=== PATIENT | male | born 1960 | race Hispanic/Latino ===

== ENCOUNTER 2020-07-16 18:43 | Observation (INO) | payer OTHER ==
[2020-07-16 19:55] LABS: Absolute Lymphocytes (CBC) 1.9 K/uL (0.7-4.9); Basophils % 0.8 % (0-1.3); Hematocrit 42.7 % (39.6-49.0); Lymphocytes % 27.7 % (15.3-44.8); MPV 9.1 fL (7.6-11.3); RBC Red Blood Cell Count 4.87 M/uL (4.33-5.43)
[2020-07-16 19:57] LABS: Protime INR 1.07
--- NOTE | 2020-07-16 20:00 | RAD REPORT ---
EXAM DESCRIPTION: RAD - Chest Single View - 07/16/2020 7:52 pm CLINICAL HISTORY: CHEST PAIN Chest pain. COMPARISON: No comparisons FINDINGS: Portable technique limits examination quality. The lungs are grossly clear. The heart is normal in size. No displaced fractures. IMPRESSION: No acute intrathoracic process suspected.
[2020-07-16] MEDS ORDERED: FAMOTIDINE 20 MG/2 ML VIAL IV ONE (20:01)
[2020-07-16] MEDS ORDERED: ONDANSETRON 4 MG/2 ML VIAL ONE (20:01)
[2020-07-16] MEDS ORDERED: MORPHINE 2 MG/ML SYR ONE (20:01)
[2020-07-16 20:14] LABS: ALT/SGPT 45 U/L (12-78); AST/SGOT 43 U/L (15-37); Albumin 4.4 g/dL (3.4-5.0); Alkaline Phosphatase 87 U/L (45-117); BUN Blood Urea Nitrogen 17 mg/dL (7-18); Bicarbonate 27 mmol/L (21-32); Bilirubin Direct 0.2 mg/dL (0-0.2); Bilirubin Total 0.5 mg/dL (0.2-1.0); Glucose Level 89 mg/dL (74-106); Lipase 104 U/L (73-393); NT PRO-BNP 6 pg/mL (<125); Potassium 4.3 mmol/L (3.5-5.1); Protein, Total 8.6 g/dL (6.4-8.2); Sodium Level 129 mmol/L (136-145); Troponin (Emerg Dept Use Only) < 0.02 ng/mL (0.0-0.045)
--- NOTE | 2020-07-16 20:55 | EDPHYS ---
Physician Documentation [facility] Name: Alejandro Elizabeth Age: 60 yrs Sex: Male : 1960 Arrival Date: 07/16/2020 Time: 18:52 Bed 26 Private MD: ED Physician Mike Shepherd HPI: 07/16 19:42 This 60 yrs old Male presents to ER via Wheelchair with complaints of Chest mh7 Pain. 19:42 The patient or guardian reports chest pain that is located primarily in the anterior mh7 chest wall, left. Onset: 3 day(s) ago. The pain does not radiate. Associated signs and symptoms: Pertinent positives: abdominal pain, nausea, Pertinent negatives: cough, diaphoresis, dizziness, headache, lower extremity pain, lower extremity swelling, lightheadedness, near syncope, palpitations, recent travel, shortness of breath, syncope, vomiting. The chest pain is described as a pressure. Duration: The patient or guardian reports multiple episodes, that are intermittent, that wax and wane, with no pattern. Modifying factors: The symptoms are alleviated by nothing. the symptoms are aggravated by nothing. Severity of pain: At its worst the pain was moderate 3 day(s) ago, in the emergency department the pain has improved moderately. Historical: - Allergies: 18:55 No Known Allergies; sv - PMHx: 18:55 Sleep Apnea; dehydration; low testosterone; sv - PSHx: 18:55 None; sv - Immunization history:: Adult Immunizations unknown. - Social history:: Smoking status: unknown. ROS: 19:42 Constitutional: Negative for fever, chills, and weight loss, Eyes: Negative for injury, mh7 pain, redness, and discharge, ENT: Negative for injury, pain, and discharge, Neck: Negative for injury, pain, and swelling, Respiratory: Negative for shortness of breath, cough, wheezing, and pleuritic chest pain, Back: Negative for injury and pain, : Negative for injury, bleeding, discharge, and swelling, MS/Extremity: Negative for injury and deformity, Skin: Negative for injury, rash, and discoloration, Neuro: Negative for headache, weakness, numbness, tingling, and seizure, Psych: Negative for depression, anxiety, suicide ideation, homicidal ideation, and hallucinations, Allergy/Immunology: Negative for hives, rash, and allergies, Endocrine: Negative for neck swelling, polydipsia, polyuria, polyphagia, and marked weight changes, Hematologic/Lymphatic: Negative for swollen nodes, abnormal bleeding, and unusual bruising. Exam: 19:42 Constitutional: This is a well developed, well nourished patient who is awake, alert, mh7 and in no acute distress. Head/Face: Normocephalic, atraumatic. Eyes: Pupils equal round and reactive to light, extra-ocular motions intact. Lids and lashes normal. Conjunctiva and sclera are non-icteric and not injected. Cornea within normal limits. Periorbital areas with no swelling, redness, or edema. Neck: Trachea midline, no thyromegaly or masses palpated, and no cervical lymphadenopathy. Supple, full range of motion without nuchal rigidity, or vertebral point tenderness. No Meningismus. Chest/axilla: Normal chest wall appearance and motion. Nontender with no deformity. No lesions are appreciated. Cardiovascular: Regular rate and rhythm with a normal S1 and S2. No gallops, murmurs, or rubs. Normal PMI, no JVD. No pulse deficits. Respiratory: Lungs have equal breath sounds bilaterally, clear to auscultation and percussion. No rales, rhonchi or wheezes noted. No increased work of breathing, no retractions or nasal flaring. 19:42 Back: No spinal tenderness. No costovertebral tenderness. Full range of motion. Skin: Warm, dry with normal turgor. Normal color with no rashes, no lesions, and no evidence of cellulitis. MS/ Extremity: Pulses equal, no cyanosis. Neurovascular intact. Full, normal range of motion. Neuro: Awake and alert, GCS 15, oriented to person, place, time, and situation. Cranial nerves II-XII grossly intact. Motor strength 5/5 in all extremities. Sensory grossly intact. Cerebellar exam normal. Normal gait. Psych: Awake, alert, with orientation to person, place and time. Behavior, mood, and affect are within normal limits. 19:42 Abdomen/GI: Inspection: abdomen appears normal, Bowel sounds: normal, in all quadrants, Palpation: mild abdominal tenderness, in the epigastric area, Rectal exam: the exam is deferred, because of patient request, Indicators: McBurney's point is not tender, Lal's sign is negative, Rovsing's sign is negative, Obturator sign is negative, Psoas sign is negative, Liver: no appreciated palpable abnormalities, Hernia: not appreciated. 21:19 ECG was reviewed by the Attending Physician. [facility] Vital Signs: 18:55 BP 154 / 79; Pulse 86; Resp 20; Temp 98.5(TE); Pulse Ox 100% on R/A; Weight 97.52 kg; sv Height 5 ft. 2 in. (157.48 cm); Pain 3/10; 20:00 BP 129 / 70; Pulse 73; Resp 17 S; Pulse Ox 98% on R/A; jd3 20:47 BP 137 / 74; Pulse 73; Resp 17 S; Pulse Ox 99% on R/A; jd3 21:49 BP 141 / 70; Pulse 65; Resp 16 S; Pulse Ox 99% on R/A; jd3 22:54 BP 149 / 88; Pulse 67; Resp 17 S; Pulse Ox 99% on R/A; jd3 18:55 Body Mass Index 39.32 (97.52 kg, 157.48 cm) sv MDM: 19:25 Patient medically screened. [facility] 20:51 Differential diagnosis: acute myocardial infarction, acute pericarditis, anxiety, 7 coronary artery disease chest wall pain, congestive heart failure esophagitis, gastritis, gastroesophageal reflux disease (GERD), pancreatitis, peptic ulcer disease, pericarditis, pneumonia, pneumothorax. HEART Score: History: Highly Suspicious (2), ECG: Normal (0), Age: > 45 and < 65 years (1), Risk Factors: 1 or 2 risk factors (1), [Hypercholesterolemia] Troponin: < or = 1 x Normal Limit (0), Total Score = 4. The patient was given aspirin in the Emergency Department. Data reviewed: vital signs, nurses notes, lab test result(s), amylase and lipase, cardiac enzymes, CBC, electrolytes, urinalysis, EKG, radiologic studies, plain films. Data interpreted: Pulse oximetry: on room air is 99 %. Interpretation: normal. Counseling: I had a detailed discussion with the patient and/or guardian regarding: the historical points, exam findings, and any diagnostic results supporting the discharge/admit diagnosis, lab results, radiology results, the need for further work-up and treatment in the hospital. 07/16 19:25 Order name: Basic Metabolic Panel; Complete Time: 20:29 07/16 19:25 Order name: CBC with Diff; Complete Time: 20:29 07/16 19:25 Order name: LFT's; Complete Time: 20:29 07/16 19:25 Order name: Magnesium; Complete Time: 20:29 07/16 19:25 Order name: NT PRO-BNP; Complete Time: 20:29 07/16 19:25 Order name: PT-INR; Complete Time: 20:29 07/16 19:17 Order name: EKG; Complete Time: 19:18 07/16 19:25 Order name: Troponin (emerg Dept Use Only); Complete Time: 20:29 07/16 19:25 Order name: XRAY Chest (1 view); Complete Time: 20:29 07/16 19:25 Order name: Lipase; Complete Time: 20:29 07/16 19:17 Order name: EKG - Nurse/Tech; Complete Time: 19:17 [facility] 07/16 19:25 Order name: Cardiac monitoring; Complete Time: 19:34 07/16 19:25 Order name: IV Saline Lock; Complete Time: 19:47 07/16 19:25 Order name: Labs collected and sent; Complete Time: 19:47 07/16 19:25 Order name: O2 Per Protocol; Complete Time: 19:34 07/16 19:25 Order name: O2 Sat Monitoring; Complete Time: 19:34 mh7 EC:19 Rate is 61 beats/min. Rhythm is regular, Normal Sinus Rhythm. QRS [place] is Normal. CT mh7 interval is normal. QRS interval is normal. QT interval is normal. No Q waves. T waves are Normal. No ST changes noted. Clinical impression: Normal ECG. Administered Medications: 19:55 Drug: Pepcid 20 mg Route: IVP; Site: left antecubital; jd3 20:50 Follow up: Response: No adverse reaction jd3 19:55 Not Given (Patient Refused): morphine 2 mg IVP once; RASS on ADMIN: Combtv4, Very jd3 Agttd3, Agttd2, Rstlss1, AlertClm0, Drwsy-1, Lt Sdtn-2, Mod Sdtn-3, Dp Sdtn-4, UnArsble-5 19:56 Drug: Zofran (Ondansetron) 4 mg Route: IVP; Site: left antecubital; jd3 20:50 Follow up: Response: No adverse reaction jd3 20:46 Drug: Aspirin Chewable Tablet 324 mg Route: PO; jd3 21:45 Follow up: Response: No adverse reaction jd3 Disposition: 07/16/20 20:54 Hospitalization ordered by Lucas Gonzalez for Observation. Preliminary diagnosis is Chest pain, unspecified. - Bed requested for Telemetry/MedSurg (observation). - Status is Observation. jd3 - Condition is Stable. - Problem is new. - Symptoms have improved. Signatures: Dispatcher [employer] EDMS Yanet Taylor RN Nena Sanders RN RN Shashank Alberto RN RN jMike Rodriguez MD MD mh7 Corrections: (The following items were deleted from the chart) 22:34 20:54 Hospitalization Ordered by Lucas Gonzalez MD for Observation. Preliminary cg diagnosis is Chest pain, unspecified. Bed requested for Telemetry/MedSurg (observation). Status is Observation. Condition is Stable. Problem is new. Symptoms have improved. mh7 23:00 22:34 07/16/2020 20:54 Hospitalization Ordered by Lucas Gonzalez MD for Observation. jd3 Preliminary diagnosis is Chest pain, unspecified. Bed requested for Telemetry/MedSurg (observation). Status is Observation. Condition is Stable. Problem is new. Symptoms have improved. cg
--- NOTE | 2020-07-16 20:55 | ER ---
Nurse's Notes [facility] Name: Alejandro Elizabeth Age: 60 yrs Sex: Male : 1960 Arrival Date: 07/16/2020 Time: 18:52 Bed 26 [facility] MD: Diagnosis: Chest pain, unspecified Presentation: 07/16 18:53 Chief complaint: Patient states: left sided chest pain that radiates to the epigastric sv area, nausea and chills x 3 days. Denies SOB and dizziness. Coronavirus screen: Client denies travel out of the [place] in the last 14 days. At this time, the client does not indicate any symptoms associated with coronavirus-19. Ebola Screen: No symptoms or risks identified at this time. Risk Assessment: Do you want to hurt yourself or someone else? Patient reports no desire to harm self or others. Onset of symptoms was July 13, 2020. 18:53 Method Of Arrival: Wheelchair sv 18:53 Acuity: JARED 3 sv 18:55 Initial Sepsis Screen: Does the patient meet any 2 criteria? No. Patient's initial sv sepsis screen is negative. Does the patient have a suspected source of infection? No. Patient's initial sepsis screen is negative. Historical: - Allergies: 18:55 No Known Allergies; sv - PMHx: 18:55 Sleep Apnea; dehydration; low testosterone; sv - PSHx: 18:55 None; sv - Immunization history:: Adult Immunizations unknown. - Social history:: Smoking status: unknown. Screenin:58 Abuse screen: Denies threats or abuse. Nutritional screening: No deficits noted. jd3 Tuberculosis screening: No symptoms or risk factors identified. Fall Risk Ambulatory Aid- None/Bed Rest/Nurse Assist (0 pts). Gait- Normal/Bed Rest/Wheelchair (0 pts) Mental Status- Oriented to own ability (0 pts). Total Barrera Fall Scale indicates No Risk (0-24 pts). Assessment: 19:57 General: Appears in no apparent distress. uncomfortable, Behavior is calm, cooperative, jd3 appropriate for age. Pain: Complains of pain in chest Pain does not radiate. Pain currently is 2 out of 10 on a pain scale. Quality of pain is described as aching, pressure, Pain began 2-3 days ago. Neuro: Level of Consciousness is awake, alert, obeys commands, Oriented to person, place, time, situation. Cardiovascular: Reports chest pain, Capillary refill < 3 seconds Patient's skin is warm and dry. Rhythm is regular. Respiratory: Airway is patent Respiratory effort is even, unlabored, Respiratory pattern is regular, symmetrical, Denies cough, shortness of breath. GI: Reports constipation, indigestion. : No signs and/or symptoms were reported regarding the genitourinary system. EENT: No signs and/or symptoms were reported regarding the EENT system. Derm: Skin is intact, Skin is dry, Skin is normal, Skin temperature is warm. 20:46 Reassessment: Patient appears in no apparent distress at this time. No changes from [facility] previously documented assessment. Patient and/or family updated on plan of care and expected duration. Pain level reassessed. Patient is alert, oriented x 3, equal unlabored respirations, skin warm/dry/pink. 21:49 Reassessment: Patient appears in no apparent distress at this time. Patient and/or jd3 family updated on plan of care and expected duration. Pain level reassessed. Patient is alert, oriented x 3, equal unlabored respirations, skin warm/dry/pink. awaiting admission. 22:58 Reassessment: Patient appears in no apparent distress at this time. Patient and/or jd3 family updated on plan of care and expected duration. Pain level reassessed. Patient is alert, oriented x 3, equal unlabored respirations, skin warm/dry/pink. Vital Signs: 18:55 BP 154 / 79; Pulse 86; Resp 20; Temp 98.5(TE); Pulse Ox 100% on R/A; Weight 97.52 kg; sv Height 5 ft. 2 in. (157.48 cm); Pain 3/10; 20:00 BP 129 / 70; Pulse 73; Resp 17 S; Pulse Ox 98% on R/A; jd3 20:47 BP 137 / 74; Pulse 73; Resp 17 S; Pulse Ox 99% on R/A; jd3 21:49 BP 141 / 70; Pulse 65; Resp 16 S; Pulse Ox 99% on R/A; jd3 22:54 BP 149 / 88; Pulse 67; Resp 17 S; Pulse Ox 99% on R/A; jd3 18:55 Body Mass Index 39.32 (97.52 kg, 157.48 cm) ED Course: 18:52 Patient arrived in ED. mr 18:54 Triage completed. sv 18:55 Arm band placed on. sv 19:02 Mike Shepherd MD is Attending Physician. 7 19:17 Shashank Vidales, JOHNNIE is Primary Nurse. jd3 19:53 XRAY Chest (1 view) In Process Unspecified. EDMS 19:58 Patient has correct armband on for positive identification. Placed in gown. Bed in low jd3 position. Call light in reach. Side rails up X 1. cardiac monitor on. Pulse ox on. NIBP on. 19:59 Inserted saline lock: 20 gauge in left antecubital area, using aseptic technique. Blood jd3 collected. placed by [facility]. Patient maintains SpO2 saturation greater than 95% on room air. 20:54 Lucas Gonzalez MD is Hospitalizing Provider. 7 22:55 No provider procedures requiring assistance completed. Patient admitted, IV remains in jd3 place. Administered Medications: 19:55 Drug: Pepcid 20 mg Route: IVP; Site: left antecubital; jd3 20:50 Follow up: Response: No adverse reaction jd3 19:55 Not Given (Patient Refused): morphine 2 mg IVP once; RASS on ADMIN: Combtv4, Very jd3 Agttd3, Agttd2, Rstlss1, AlertClm0, Drwsy-1, Lt Sdtn-2, Mod Sdtn-3, Dp Sdtn-4, UnArsble-5 19:56 Drug: Zofran (Ondansetron) 4 mg Route: IVP; Site: left antecubital; jd3 20:50 Follow up: Response: No adverse reaction jd3 20:46 Drug: Aspirin Chewable Tablet 324 mg Route: PO; jd3 21:45 Follow up: Response: No adverse reaction jd3 Outcome: 20:54 Decision to Hospitalize by Provider. 7 22:55 Admitted to Med/surg accompanied by tech, via wheelchair, room 431, with chart, Report jd3 called to Sailaja BLAIR 22:55 Condition: stable 22:55 Instructed on the need for admit, Demonstrated understanding of instructions. 23:00 Patient left the ED. jd3 Signatures: Dispatcher [employer] EDYanet Morin, JOHNNIE [place] Ashtyn mr VidalesShashank RN RN jd3 Holmes, Maurice, MD MD mh7 Corrections: (The following items were deleted from the chart) 18:58 18:55 Pulse 86bpm; Resp 20bpm; Pulse Ox 100%; Temp 98.5F; 97.52 kg; Height 5 ft. 2 in.; sv BMI: 39.3; Pain 3/10; sv
[2020-07-16] MEDS ORDERED: ASPIRIN 81 MG CHEWABLE TABLET ONE (20:56)
--- NOTE | 2020-07-16 21:41 | P.HP ---
Certification for Inpatient Patient admitted to: Observation With expected LOS: <2 Midnights Patient will require the following post-hospital care: None Practitioner: I am a practitioner with admitting privileges, knowledge of patient current condition, hospital course, and medical plan of care. Services: Services provided to patient in accordance with Admission requirements found in Title 42 Section 412.3 of the Code of Federal Regulations <Moustapha Lubin - Last Filed: 07/16/20 21:34> Patient History Date of Service: 07/16/20 Primary Care Provider: Dr. Werner Reason for admission: Chest pain History of Present Illness: 60-year-old male with history of diabetes insipidus, hyperlipidemia, GERD presents emergency department for chest pain and epigastric pain. Patient reports he has had chest pain on and off over the course of the last 2-3 days. Pain is described as pressure-like and nonradiating, relieved by nothing, exacerbated by nothing. Patient reports last cardiac workup was approximately 5 years ago when he had normal stress test. The troponin, EKG, chest x-ray emergency department unremarkable. ED provider wishes to admit patient for further evaluation and management. When I saw the patient in the emergency department he was awake, alert, or x4. Patient with very mild pain at this time. CBC within normal limits, no abdominal tenderness noted, lipase within normal limits. Patient be admitted for further evaluation and management. 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 - Family History Mother -: Heart disease, Diabetes - Social History Smoking Status: Never smoker Alcohol use: No CD- Drugs: No Caffeine use: Yes Place of Residence: Home <Moustapha Lubin - Last Filed: 07/16/20 21:34> Date of Service: 07/17/20 <Lucas Gonzalez - Last Filed: 07/17/20 16:03> Review of Systems Cardiovascular: Chest Pain Gastrointestinal: Other (Epigastric pain) <TristianMoustapha - Last Filed: 07/16/20 21:34> Physical Examination - Physical Exam General: Alert, In no apparent distress HEENT: Atraumatic, PERRLA, Mucous membr. moist/pink Neck: Supple, 2+ carotid pulse no bruit, No LAD Respiratory: Clear to auscultation bilaterally, Normal air movement Cardiovascular: Regular rate/rhythm, Normal S1 S2 Capillary refill: <2 Seconds Gastrointestinal: Normal bowel sounds, No tenderness Musculoskeletal: No contractures, No tenderness Integumentary: No rashes Neurological: Normal speech, Normal strength at 5/5 x4 extr, Normal tone, Normal affect - Studies Laboratory Data (last 24 hrs) 07/16/20 19:47: PT 12.6 H, INR 1.07 07/16/20 19:47: WBC 6.8, Hgb 15.4, Hct 42.7, Plt Count 270 07/16/20 19:47: Sodium 129 L, Potassium 4.3, BUN 17, Creatinine 0.88, Glucose 89, Magnesium 2.0, Total Bilirubin 0.5, AST 43 H, ALT 45, Alkaline Phosphatase 87, Lipase 104 <Moustapha Lubin - Last Filed: 07/16/20 21:34> - Studies Laboratory Data (last 24 hrs) 07/16/20 19:47: PT 12.6 H, INR 1.07 07/16/20 19:47: WBC 6.8, Hgb 15.4, Hct 42.7, Plt Count 270 07/16/20 19:47: Sodium 129 L, Potassium 4.3, BUN 17, Creatinine 0.88, Glucose 89, Magnesium 2.0, Total Bilirubin 0.5, AST 43 H, ALT 45, Alkaline Phosphatase 87, Lipase 104 <Lucas Gonzalez - Last Filed: 07/17/20 16:03> Assessment and Plan - Plan Assessment Chest pain rule out ACS Mild hypernatremia likely secondary to Diabetes insipidus Hypothyroidism Hyperlipidemia GERD Sleep apnea Plan Chest pain rule out ACS: Will trend troponins, continue aspirin, statin, beta- analy therapy. Patient remain on telemetry the this hospitalization, cardiology consult in place. Patient NPO after midnight. Echocardiogram ordered, DVT prophylaxis Lovenox 40 mg subcutaneous once daily. Mild hyponatremia likely secondary to Diabetes insipidus: Patient takes desmopressin acetate 0.2 mg 1 tablet twice daily, important this is not available. Will have patient provide this for home. Patient's sodium is 129, will continue with normal saline IV fluids at this time. Recheck chemistry with morning labs. Hypothyroidism: Have continue patient's levothyroxine, will check thyroid panel with morning labs. Hyperlipidemia: Have continue patient's statin, fibrate. Increase statin to atorvastatin 40 mg from 20 mg. GERD: Have continue patient's home medication Protonix. Sleep apnea: Patient reports his CPAP machine at home as the broken the past few days, has not been sleeping well. Will provide patient with CPAP for at night use. Discharge Plan: Home Plan to discharge in: 24 Hours - Advance Directives Does patient have a Living Will: No Does patient have a Durable POA for Healthcare: No - Code Status/Comfort Care Code Status Assessed: Yes (Patient is full code) Critical Care: No Time Spent Managing Pts Care (In Minutes): 55 <Moustapha Lubin - Last Filed: 07/16/20 21:34> Physician Review Additional Text: Plan of care discussed with Moustapha Lubin, and I agree with the management plan as noted above. <Lucas Gonzalez - Last Filed: 07/17/20 16:03>
[2020-07-16 23:12] VITALS: BMI 38.7
[2020-07-16] MEDS ORDERED: ACETAMINOPHEN 500 MG TAB PO PRN (23:16)
[2020-07-16] MEDS ORDERED: ONDANSETRON 4 MG/2 ML VIAL IV PRN (23:16)
[2020-07-17 04:16] LABS: Absolute Lymphocytes (CBC) 2.5 K/uL (0.7-4.9); Hematocrit 40.6 % (39.6-49.0); Lymphocytes % 32.7 % (15.3-44.8); MPV 9.4 fL (7.6-11.3); RBC Red Blood Cell Count 4.57 M/uL (4.33-5.43)
[2020-07-17 04:44] LABS: BUN Blood Urea Nitrogen 19 mg/dL (7-18); Bicarbonate 28 mmol/L (21-32); Glucose Level 88 mg/dL (74-106); HDL Cholesterol 43 mg/dL (40-60); LDL Cholesterol, Calculated 120 (<130); Magnesium 2.1 mg/dL (1.8-2.4); Potassium 4.1 mmol/L (3.5-5.1); Sodium Level 131 mmol/L (136-145); Thyroid Stimulating Hormone 0.174 uIU/mL (0.360-3.740); Troponin I < 0.02 ng/mL (0.0-0.045)
[2020-07-17] MEDS ORDERED: METOPROLOL TAR 25 MG TAB PO SCH (06:00)
[2020-07-17] MEDS ORDERED: PANTOPRAZOLE 40MG TABLET PO SCH (06:30)
[2020-07-17] MEDS ORDERED: LEVOTHYROXINE SOD 0.088 MG TAB PO SCH (06:30)
[2020-07-17] MEDS ORDERED: gemfibroziL 600 MG TAB PO SCH (07:30)
[2020-07-17] MEDS ORDERED: ENOXAPARIN 40 MG/0.4 ML SQ SCH (09:00)
[2020-07-17] MEDS ORDERED: ASPIRIN EC 81 MG TAB PO SCH (09:00)
--- NOTE | 2020-07-17 14:54 | P.DS ---
Admission Date: 07/16/20 Discharge Date: 07/17/20 Primary Care Provider: Dr. Werner Disposition: ROUTINE DISCHARGE Discharge Condition: GOOD Reason for Admission: Chest pain Consultations: Cardiology - Dr. Gerardo Procedures: CXR: 07/16/2020): No acute intrathoracic process suspected. The lungs are grossly clear. The heart is normal in size. No displaced fractures Problem List: Chest pain rule out ACS Mild hypernatremia likely secondary to Diabetes insipidus Hypothyroidism Hyperlipidemia GERD Sleep apnea Brief History of Present Illness: 60-year-old male with history of diabetes insipidus, hyperlipidemia, GERD presents emergency department for chest pain and epigastric pain. Patient reports he has had chest pain on and off over the course of the last 2-3 days. Pain is described as pressure-like and nonradiating, relieved by nothing, exacerbated by nothing. Patient reports last cardiac workup was approximately 5 years ago when he had normal stress test. The troponin, EKG, chest x-ray emergency department unremarkable. ED provider wishes to admit patient for further evaluation and management. Hospital Course: Patient was admitted for further evaluation. His troponins were trended and remained negative. Most of his chest pain had resolved, no slight pain that remained was aggravated/worsened when he would flex his chest and move around his left arm. His risks were discussed, and given that we do not have echocardiogram and stress test available on the weekend, patient will be discharged home to follow up on this following week for outpatient testing. In addition to some statin, his discharge on aspirin 81 mg, and metoprolol. Vital Signs/Physical Exam: Temp Pulse Resp BP Pulse Ox 97.8 F 69 18 129/62 96 07/17/20 12:00 07/17/20 12:00 07/17/20 12:00 07/17/20 12:07/17/20 12:00 General: Alert, In no apparent distress HEENT: Mucous membr. moist/pink, Sclerae nonicteric Neck: No LAD Respiratory: Clear to auscultation bilaterally, Normal air movement Cardiovascular: No edema, Regular rate/rhythm, Normal S1 S2, Other (Chest wall nontender) Gastrointestinal: Soft and benign, Non-distended, No tenderness Musculoskeletal: No erythema, No tenderness Integumentary: No rashes Neurological: Normal speech, Normal affect Laboratory Data at Discharge: WBC 7.7 K/uL (4.3-10.9) 07/17/20 03:53 Hgb 14.4 g/dL (13.6-17.9) 07/17/20 03:53 Hct 40.6 % (39.6-49.0) 07/17/20 03:53 Plt Count 287 K/uL (152-406) 07/17/20 03:53 PT 12.6 SECONDS (9.5-12.5) H 07/16/20 19:47 INR 1.07 07/16/20 19:47 Sodium 131 mmol/L (136-145) L 07/17/20 03:53 Potassium 4.1 mmol/L (3.5-5.1) 07/17/20 03:53 BUN 19 mg/dL (7-18) H 07/17/20 03:53 Creatinine 0.95 mg/dL (0.55-1.3) 07/17/20 03:53 Glucose 88 mg/dL (74-106) 07/17/20 03:53 Magnesium 2.1 mg/dL (1.8-2.4) 07/17/20 03:53 Total Bilirubin 0.5 mg/dL (0.2-1.0) 07/16/20 19:47 AST 43 U/L (15-37) H 07/16/20 19:47 ALT 45 U/L (12-78) 07/16/20 19:47 Alkaline Phosphatase 87 U/L (45-117) 07/16/20 19:47 Troponin I < 0.02 ng/mL (0.0-0.045) 07/17/20 03:53 Triglycerides 138 mg/dL (<150) 07/17/20 03:53 Cholesterol 191 mg/dL (<200) 07/17/20 03:53 HDL Cholesterol 43 mg/dL (40-60) 07/17/20 03:53 Cholesterol/HDL Ratio 4.44 07/17/20 03:53 Lipase 104 U/L (73-393) 07/16/20 19:47 Home Medications: Atorvastatin Calcium 1 tab PO BEDTIME 07/16/20 Desmopressin Acetate 1 tab PO BID 07/16/20 Diclofenac Sodium 1 tab PO BID 07/16/20 Ergocalciferol (Vitamin D2) [Vitamin D2] 1 cap PO SEECOM 07/16/20 Levothyroxine [Synthroid*] 1 tab PO DAILY 07/16/20 Meclizine HCl [Travel-Ease] 1 tab PO TID PRN 07/16/20 Multivit-Mins/Iron/Folic/Lycop [Centrum Men's Tablet] 1 tab PO DAILY 07/16/20 Ondansetron [Ondansetron Odt] 1 tab PO TID PRN 07/16/20 Pantoprazole Sodium 1 tab PO DAILY 07/16/20 Testosterone Cypionate [Testone Cik] 1 ml IM SEECOM 07/16/20 calcium polycarbophiL [Fibercon*] 1 tab PO BID 07/16/20 gemfibroziL [Gemfibrozil] 1 tab PO BID 07/16/20 Aspirin [Aspirin EC 81 MG] 1 tab PO DAILY 30 Days #30 tablet. 07/17/20 Metoprolol Tartrate [Lopressor*] 1 tab PO BID 30 Days #30 tab 07/17/20 New Medications: Aspirin [Aspirin EC 81 MG] 1 tab PO DAILY 30 Days #30 tablet. Metoprolol Tartrate [Lopressor*] 1 tab PO BID 30 Days #30 tab Patient Discharge Instructions: Follow up with PCP within 1 week. Follow up with Cardiology (Dr. Gerardo) in the next week for possible outpatient stress test. Diet: AHA Activity: Ad giacomo Time spent managing pt's care (in minutes): 35
[2020-07-17 16:27] VITALS: BP 113/55; TEMP 97.9; O2SAT 97
[2020-07-17] MEDS ORDERED: HOME MED 1 EA UNK PO SCH (21:00)
[2020-07-17] MEDS ORDERED: ATORVASTATIN 40 MG TAB PO SCH (21:00)
[2020-07-18] MEDS ORDERED: HOME MED 1 EA UNK PO SCH (09:00)
--- NOTE | 2020-07-29 22:17 | CON ---
Date of Consultation: 07/16/2020 Reason For Consultation: Chest pain. History Of Present Illness: This is a 60-year-old male with history of diabetes insipidus, hypothyro idism, hyperlipidemia, acid reflux, and sleep apnea, presented to the emergency room with chest pain. Pain is left-sided, not related to exertion. No exacerbating or relieving factors. The patient martino d a normal stress test about 5 years ago. Does not have any nausea, vomiting, or diaphoresis with it . No other complaints. Past Medical History: As outlined above in the HPI. Medications: Refer to reconciliation sheet for detailed list. Allergies: NO KNOWN DRUG ALLERGIES. Family History: No premature coronary artery disease or cancer. Social History: Does not smoke or drink or use any drugs. Review of Systems: All systems reviewed and they were negative except what mentioned in the HPI. Physical Examination: Vital Signs: Reviewed. Head and Neck: Pupils are reactive to light. Intact eye movements. No JVD. No cervical lymphadeno ani. Neck is supple. Thyroid is not enlarged. Lungs: Clear to auscultation bilaterally. No rhonchi, rales, crackles. No accessory muscle use. Heart: Regular rate and rhythm. No extra sounds. Abdomen: Soft, nontender. Bowel sounds positive. No organomegaly. No masses or hernia. No rigidi ty or rebound. Extremities: No edema, clubbing, cyanosis. Intact pulses. Skin: No rash. Neurologic: Alert, awake, oriented x3. No acute focal deficit appreciated. Lymph Nodes: No cervical or axillary lymphadenopathy. Investigations: Sodium 131, troponin x2 is negative, and creatinine 0.93. White blood count 7.7, he moglobin 14.4. EKG without acute specific abnormalities. Assessment And Plan: Chest pain with risk factors; however, atypical pain. Myocardial infarction wa s ruled out. At this point from cardiac standpoint, the patient can be released and followup as outp atient with echo and exercise nuclear stress test and further plan according to that. Recommend to s end the patient on low-dose aspirin 81 mg and sublingual nitroglycerin as needed and to report any fu rther episodes of chest pain. Thank you for this consultation. /AKHIL Voice ID: [id number] Report ID: [id number]
== END 2020-07-17 16:20 | disposition home or self-care (01) ==
LOC: ER 18:43 → ERHOLD 21:11 → 4TH 22:46
PROVIDERS: ADMIT Hospitalist; ATTEND Hospitalist
DX: R07.89 Other chest pain (principal); K21.9 Gastro-esophageal reflux disease without esophagitis; E87.0 Hyperosmolality and hypernatremia; E03.9 Hypothyroidism, unspecified; E78.5 Hyperlipidemia, unspecified; G47.30 Sleep apnea, unspecified; E23.2 Diabetes insipidus; Z20.828 Contact with and (suspected) exposure to other viral communicable diseases; Z82.49 Family history of ischemic heart disease and other diseases of the circulatory system; Z83.3 Family history of diabetes mellitus
CPT/HCPCS: 93005; 85025 ×2; 80048 ×2; 36415; 83735 ×2; 85610; 80061; 80076; 84443; 84484 ×3; 84439; 83690; 83880; 71045; 94660; 96375; 96374; 99285; U0002; J1650; J2270; J2405; G0378 ×2

== ENCOUNTER 2022-01-21 16:18 | Emergency (ER) | payer OTHER ==
--- OUTSIDE RECORDS SUMMARY | 2022-01-21 16:21 | XMS REPORT | Continuity of Care Document ---
:1960 Author Organization [facility] t Address [address] [place] [address] [address] [place] [address] Care Team Providers Name Role Phone DR MAGAN DHALIWAL Attending Clinician Unavailable DR Dinesh DHALIWAL Admitting Clinician Unavailable Payers Payer Name Policy Type Policy Number Effective Date Expiration Date S romulo 0345 [id number] 1959 00:00:00 0450 [id number] Problems This patient has no known problems. Allergies, Adverse Reactions, Alerts This patient has no known allergies or adverse reactions. Medications This patient has no known medications. Procedures This patient has no known procedures. Encounters Start End Encounter Admission Attending Care Care Encounter Source Date/Time Date/Time Type Type Clinicians Facility Department ID 2022-01-10 2022-01-10 [facility] [id number] [place] 17:03:00 23:59:00 [facility] 2014-05-22 2014-05-22 Outpatient Hank DHALIWAL [facility] RAD [id number] [place] 11:01:00 23:59:00 [facility] Results Test Description Test Time Test Comments Results Result [facility] dinesh Comments CT ANGIO CHEST W 2022-01-10 AND WO 18[facility]42:11 [facility] 1960 Sex: M LO CATION: [id number]: 61-year-old male who presents with dyspnea.COMMENT:Axial CT imaging of this patient's chest was obtained from the thoracic inlet to the upper abdomen with IV contrast utilizing pulmonary embolism protocol. Soft tissue and lung window images were submitted in the axial plane. Coronal and sagittal MPR, and coronal MIP reconstructions were included.One or more of the following dose reduction techniques were used: Automated exposure control, adjustment of the mA and/or kV according the patient size, and/or utilization of iterative reconstruction technique.DLP: 712 mGy-cmCONTRAST: 97 mL of Isovue-370 nonionic contrast was injected into the right antecubital vein. The serum creatinine level was 1.06 and the estimated GFR was greater than 60 mL/m.FINDINGS:There are no suspicious filling defects demonstrated in the pulmonary arteries.The thoracic aorta and great vessels are unremarkable. The cardiac silhouette is at the upper limits of normal. The pulmonary venous return is unremarkable.Bulky mediastinal and hilar adenopathy is demonstrated. The involve lymph node groups include the right paratracheal group left prevascular group, AP window, both right and left hilar groups as well as the subcarinal group's.In addition there is no lymphadenopathy seen in the visualized upper abdomen involving the retroperitoneal anatomy.Bilateral pleural effusions are present. The right effusion is moderate volume of the left pleural effusion is trace in volume.There is a nodule demonstrated in the patient's right upper lobe (image 43, series 9) measuring approximately 14 mm in diameter. The nodule is not calcified. Otherwise, there is chronic appearing parenchymal scarring seen in the right lung primarily with bronchiectasis demonstrated in the right upper lobe region. The left lung is grossly clear.The upper abdomen the liver, spleen, pancreas, adrenal glands, visualized kidneys, and gallbladder are unremarkable.IMPRESSI ON:There is no evidence for pulmonary embolism in this CT study of the chest areExtensive bulky lymphadenopathy is demonstrated in the chest as outlined above. There is additional adenopathy demonstrated in the retroperitoneal region of the visualized upper abdomen.Bilateral pleural effusions are demonstrated, right greater than left as outlined above.A single nodular density is seen in the right upper lobe as outlined above. Otherwise, chronic appearing parenchymal scarring is seen in the right lung primarily, without evidence of parenchymal scarring in the left lung.Electronically signed by: Chaim Zeng MD 01/10/2022 6:42 PM CDT
--- NOTE | 2022-01-21 16:38 | ER ---
Nurse's Notes [facility] Name: Alejandro Elizabeth Age: 61 yrs Sex: Male : 1960 Arrival Date: 01/21/2022 Time: 16:20 Bed 10 Private MD: Diagnosis: Sciatica, left side Presentation: 01/21 16:31 Chief complaint: Patient states: "I have low back pain that goes down my left leg, I ab2 think its sciatica.". Coronavirus screen: Vaccine status: Patient reports receiving the 2nd dose of the covid vaccine. Client denies travel out of the [place] in the last 14 days. At this time, the client does not indicate any symptoms associated with coronavirus-19. Ebola Screen: Patient negative for fever greater than or equal to 101.5 degrees Fahrenheit, and additional compatible Ebola Virus Disease symptoms Patient denies exposure to infectious person. Patient denies travel to an Ebola-affected area in the 21 days before illness onset. No symptoms or risks identified at this time. Initial Sepsis Screen: Does the patient meet any 2 criteria? No. Patient's initial sepsis screen is negative. Does the patient have a suspected source of infection? No. Patient's initial sepsis screen is negative. Risk Assessment: Do you want to hurt yourself or someone else? Patient reports no desire to harm self or others. Onset of symptoms is unknown. 16:31 Method Of Arrival: Ambulatory ab2 16:31 Acuity: JARED 4 ab2 Triage Assessment: 16:34 General: Appears in no apparent distress. uncomfortable, Behavior is calm, cooperative, ab2 appropriate for age. Pain: Complains of pain in left low back Pain radiates to left leg. Historical: - Allergies: 16:34 No Known Allergies; ab2 - PMHx: 16:34 low testosterone; dehydration; Sleep Apnea; ab2 - Immunization history:: Adult Immunizations up to date. - Social history:: Smoking status: Patient denies any tobacco usage or history of. Screenin:53 Abuse screen: Denies threats or abuse. Denies injuries from another. Nutritional iw screening: No deficits noted. Tuberculosis screening: No symptoms or risk factors identified. Fall Risk None identified. Assessment: 16:53 Reassessment: Patient appears in no apparent distress at this time. Patient and/or iw family updated on plan of care and expected duration. Pain level reassessed. Patient is alert, oriented x 3, equal unlabored respirations, skin warm/dry/pink. Vital Signs: 16:31 BP 163 / 78; Pulse 85; Resp 26; Temp 97.8(TE); Pulse Ox 94% on R/A; Weight 99.79 kg; ab2 Height 5 ft. 2 in. (157.48 cm); Pain 9/10; 16:31 Body Mass Index 40.24 (99.79 kg, 157.48 cm) ab2 ED Course: 16:20 Patient arrived in ED. rg4 16:33 Yue Copeland [facility]-C [facility]. kb 16:33 Jeremias Khanna MD is Attending Physician. kb 16:33 Triage completed. ab2 16:34 Arm band placed on left wrist. ab2 16:44 Marcia Patel, RN is Primary Nurse. iw 16:45 Patient has correct armband on for positive identification. iw 16:53 No provider procedures requiring assistance completed. Patient did not have IV access iw during this emergency room visit. Administered Medications: 16:44 Drug: [place] (HYDROcodone-acetaminophen) 10 mg-325 mg 1 tabs Route: PO; iw 17:00 Follow up: Response: No adverse reaction iw Outcome: 16:38 Discharge ordered by . kb 16:53 Discharged to home ambulatory. iw 16:53 Condition: good 16:53 Discharge instructions given to patient, Instructed on discharge instructions, follow up and referral plans. Demonstrated understanding of instructions, follow-up care, medications, Prescriptions given X 2. 16:53 Patient left the ED. iw Signatures: Yue Copeland FNP-C FNP-Ckb Williams, Irene, RN Narcisa Monroy rg4 Riley Velasquez ab2
--- NOTE | 2022-01-21 16:38 | EDPHYS ---
Physician Documentation [facility] Name: Alejandro Elziabeth Age: 61 yrs Sex: Male : 1960 Arrival Date: 01/21/2022 Time: 16:20 Bed 10 Private MD: YUNIER Physician Jeremias Khanna HPI: 01/21 16:35 This 61 yrs old Male presents to ER via Ambulatory with complaints of Low Back kb Pain, Leg Pain. 16:35 The patient presents with pain that is acute. The symptoms are located in the left low kb back. The pain radiates to the left leg. The problem was sustained from unknown cause. Onset: The symptoms/episode began/occurred today. Modifying factors: The patient symptoms are alleviated by nothing, the patient symptoms are aggravated by any movement. Associated signs and symptoms: The patient has no apparent associated signs or symptoms. Severity of symptoms: At their worst the symptoms were moderate, in the emergency department the symptoms are unchanged. The patient has experienced a previous episode. The patient has not recently seen a physician. Pt reports left upper buttock/low back pain that radiates down left leg. States he has had some pain across low back over the last week. . Historical: - Allergies: 16:34 No Known Allergies; ab2 - PMHx: 16:34 low testosterone; dehydration; Sleep Apnea; ab2 - Immunization history:: Adult Immunizations up to date. - Social history:: Smoking status: Patient denies any tobacco usage or history of. ROS: 16:34 Constitutional: Negative for fever, chills, and weight loss. kb 16:34 Back: Positive for pain at rest, pain with movement, radiated pain, of the left low back. 16:34 All other systems are negative. Exam: 16:34 Constitutional: This is a well developed, well nourished patient who is awake, alert, kb and in no acute distress. Head/Face: Normocephalic, atraumatic. ENT: Moist Mucous membranes Skin: Warm, dry with normal turgor. Normal color. MS/ Extremity: Pulses equal, no cyanosis. Neurovascular intact. Full, normal range of motion. Neuro: Awake and alert, GCS 15, oriented to person, place, time, and situation. Moves all extremities. Normal gait. Psych: Awake, alert, with orientation to person, place and time. Behavior, mood, and affect are within normal limits. 16:34 Respiratory: the patient does not display signs of respiratory distress, Respirations: no acute changes, labored breathing, that is mild. 16:34 Back: pain, that is moderate, of the left low back. Vital Signs: 16:31 BP 163 / 78; Pulse 85; Resp 26; Temp 97.8(TE); Pulse Ox 94% on R/A; Weight 99.79 kg; ab2 Height 5 ft. 2 in. (157.48 cm); Pain 9/10; 16:31 Body Mass Index 40.24 (99.79 kg, 157.48 cm) ab2 MDM: 16:33 Data reviewed: vital signs, nurses notes. Data interpreted: Pulse oximetry: on room air kb is 93 %. Interpretation: acceptable. Counseling: I had a detailed discussion with the patient and/or guardian regarding: the historical points, exam findings, and any diagnostic results supporting the discharge/admit diagnosis, the need for outpatient follow up, a family practitioner, to return to the emergency department if symptoms worsen or persist or if there are any questions or concerns that arise at home. 16:36 ED course: Pt reports his breathing is normal for him. States he has been under the kb care of a pan dumper and seeing him Sunday for spots on lungs and swollen lymphnodes. 16:38 Patient medically screened. kb Administered Medications: 16:44 Drug: [place] (HYDROcodone-acetaminophen) 10 mg-325 mg 1 tabs Route: PO; iw 17:00 Follow up: Response: No adverse reaction iw Disposition Summary: 01/21/22 16:38 Discharge Ordered Location: Home kb Condition: Stable kb Diagnosis - Sciatica, left side kb Followup: kb - With: Emergency Department - When: As needed - Reason: Worsening of condition Followup: kb - With: Private Physician - When: 2 - 3 days - Reason: Recheck today's complaints, Continuance of care, Re-evaluation by your physician Discharge Instructions: - Discharge Summary Sheet kb - Sciatica, Ccgg-ci-[id number] kb Forms: - Medication Reconciliation Form kb - Thank You Letter kb - Antibiotic Education kb - Prescription Opioid Use kb - Work release form iw Prescriptions: - Cyclobenzaprine 10 mg Oral Tablet - take 1 tablet by ORAL route every 8 hours As needed; 15 tablet; Refills: 0, kb Product Selection Permitted - Diclofenac Sodium 75 mg Oral tablet,delayed release (DR/EC) - take 1 tablet by ORAL route 2 times per day As needed; 30 tablet; Refills: 0, kb Product Selection Permitted Addendum: 01/25/2022 07:07 Co-signature as Attending Physician, Jeremias Khanna MD I agree with the assessment and c martino plan of care. Signatures: Yue Copeland, RUSTAM-C RING SPINNER-Jeremias Celis MD MD cha Williams, Irene, RN RN Riley Darnell2
[2022-01-21] MEDS ORDERED: HYDROCODONE/APAP 10/325 TAB ONE (16:44)
[2022-01-21 17:40] VITALS: BP 163/78; TEMP 97.8; O2SAT 94
== END 2022-01-21 16:53 | disposition home or self-care (01) ==
LOC: ER 16:18
DX: M54.32 Sciatica, left side (principal)
CPT/HCPCS: 99283

== ENCOUNTER 2022-03-03 10:54 | Inpatient (IN) | payer OTHER ==
--- OUTSIDE RECORDS SUMMARY | 2022-03-03 11:12 | XMS REPORT | Continuity of Care Document ---
:1960 Author Organization [facility] t Address [address] [place] [address] Care Team Providers Name Role Phone YAMILET BLEVINS Attending Clinician Unavailable ALMAZ BABIN Attending Clinician Unavailable KENDY JONES Attending Clinician Unavailable MD OTTO ROLAND Attending Clinician Unavailable DR MAGAN DHALIWAL Attending Clinician Unavailable DIEGO Admitting Clinician Unavailable DR Gabriella DHALIWAL Admitting Clinician Unavailable Payers Payer Name Policy Type Policy Number Effective Date Expiration Date S ource 0345 [id number] 1959 00:00:00 0450 [id number] Problems This patient has no known problems. Allergies, Adverse Reactions, Alerts This patient has no known allergies or adverse reactions. Medications This patient has no known medications. Procedures This patient has no known procedures. Encounters Start End Encounter Admission Attending Care Care Encounter Source Date/Time Date/Time Type Type Clinicians Facility Department ID 2022-02-24 2022-02-24 [facility] [id number] [address] [place] [address] 00:00:00 00:00:00 YAMILET [address] [facility] 2022-02-23 2022-02-23 Outpatient [facility] [id number] [address] [place] [address] 00:00:00 00:00:00 YAMILET [address] 2022-02-22 2022-02-22 Outpatient [facility] [id number] [address] [place] [address] 00:00:00 00:00:00 YAMILET [address] 2022-02-21 2022-02-21 Outpatient [facility] [id number] [place] 00:00:00 00:00:00 YAMILET 458 [address] 2022-02-20 2022-02-20 Outpatient PRATH, [facility] [id number] [place] 00:00:00 00:00:00 YAMILET [address] 2022-02-16 2022-02-16 Outpatient SHAN, [facility] [id number] [place] 00:00:00 00:00:00 [place]AN [address] 2022-02-14 2022-02-14 Outpatient PRATH, [facility] [id number] [place] 00:00:00 00:00:00 YAMILET [address] 2022-02-14 2022-02-14 Outpatient PRATH, [facility] [id number] [place] 00:00:00 00:00:00 YAMILET 039 [address] 2022-02-13 2022-02-13 Outpatient PRATH, [facility] [id number] [place] 00:00:00 00:00:00 YAMILET [address] 2022-02-08 2022-02-08 Outpatient PRATH, [facility] [id number] [place] 00:00:00 00:00:00 YAMILET 057 [address] i 2022-01-22 2022-02-01 Inpatient [facility] [id number] [place] 00:00:00 00:00:00 ATH SHERRI, [address] DISNI 2022-01-10 2022-01-10 [facility] [id number] 075 [facility] [place] 17:03:00 23:59:00 [facility] 2014-05-22 2014-05-22 [facility] [id number] [address] [place] 11:01:00 23:59:00 [facility] Results Test Description Test Time Test Comments Results Result Comments Source SARS-CoV-2 (COVID-19) RNA [Presence] in Respiratory sp ecimen by 2022-01-22 12:13:01 DEAN with probe detection Test Item Value Reference Range Interpretation Comme nts SARS-CoV-2 (COVID-19) RNA [Presence] in Respiratory specimen by Not detected DEAN with probe detection (test code = 07932-1) Whether patient is employed in a healthcare setting (test code = Un known 45115-0) Whether the patient has symptoms related to condition of interest U nknown (test code = 91484-8) Whether the patient was hospitalized for condition of interest Unkn own (test code = 40503-2) Whether the patient was admitted to intensive care unit (ICU) for U nknown condition of interest (test code = 39209-0) Whether patient resides in a congregate care setting (test code = U nknown 38366-3) status (test code = 10949-8) Unknown Date and time of symptom onset (test code = 94660-0) Unknown CT ANGIO CHEST W AND [id number] 18:42:11 [facility] : 1960 Sex: MLOCATION: [id number]: 61-year-old male who presents with dyspnea.COMMENT:Axial CT [...] of iterative reconstruction technique.DLP: 712 mGy-cmCONTRAST: 97 mLof Isovue-370 nonionic contrast was injected into the right antecubital vein. The serum creatinine le georgina was 1.06 and the estimated GFR was greater than 60 mL/m.FINDINGS:There are no suspicious fillingdefects demonstrated in the pulmonary arteries.The thoracic aorta [...] no lymphadenopathy seen in the visualized upper abdomeninvolving the retroperitoneal anatomy.Bilateral pleural effusions are present. The right effusion ismoderate volume of the left pleural effusion is trace in volume.There is a nodule demonstrated in the patient's right upper lobe (image 43, series 9) measuring approximately 14 mm in diameter. The nodule is not calcified. Otherwise, there is chronic appearing parenchymal scarring seen in the right lung primarily with bronchiectasis demonstrated in the right upper lobe region. The left lung is grosslyclear.The upper abdomen the liver, spleen, pancreas, adrenal glands, visualized kidneys, and gallbladder are unremarkable.IMPRESSION:There is no evidence for pulmonary embolism in [...]
[2022-03-03 11:28] LABS: Absolute Lymphocytes (CBC) 0.1 K/uL (0.7-4.9); Hematocrit 18.8 % (39.6-49.0); Lymphocytes % 22.4 % (15.3-44.8); MPV 8.3 fL (7.6-11.3); RBC Red Blood Cell Count 2.23 M/uL (4.33-5.43)
--- NOTE | 2022-03-03 11:34 | RAD REPORT ---
EXAM DESCRIPTION: CT - Head Brain Wo Cont - 03/03/2022 11:22 am CLINICAL HISTORY: Syncope, simple, normal neuro exam COMPARISON: No comparisons TECHNIQUE: All CT scans are performed using dose optimization technique as appropriate and may inclu de automated exposure control or mA/KV adjustment according to patient size. FINDINGS: No intracranial hemorrhage, hydrocephalus or extra-axial fluid collection.No areas of brai n edema or evidence of midline shift. Ethmoid air cell thickening. The calvarium is intact. IMPRESSION: No acute intracranial abnormality.
[2022-03-03 11:39] LABS: Protime INR 1.3
[2022-03-03 11:46] LABS: ALT/SGPT 18 U/L (12-78); AST/SGOT 10 U/L (15-37); Albumin 3.5 g/dL (3.4-5.0); Alkaline Phosphatase 106 U/L (45-117); BUN Blood Urea Nitrogen 13 mg/dL (7-18); Bicarbonate 24 mmol/L (21-32); Bilirubin Direct 0.2 mg/dL (0-0.2); Bilirubin Total 0.7 mg/dL (0.2-1.0); Glomerular Filtration Rate > 90 mL/min (=/>90); Glucose Level 109 mg/dL (74-106); Lipase 50 U/L (73-393); Magnesium 1.5 mg/dL (1.8-2.4); Potassium 3.7 mmol/L (3.5-5.1); Protein, Total 6.6 g/dL (6.4-8.2); Sodium Level 132 mmol/L (136-145)
[2022-03-03] MEDS ORDERED: ONDANSETRON 4 MG/2 ML VIAL ONE (11:54)
--- NOTE | 2022-03-03 12:15 | EDPHYS ---
Physician Documentation [facility] Name: Alejandro Elizabeth Age: 62 yrs Sex: Male : 1960 Arrival Date: 03/03/2022 Time: 10:55 Bed 25 Private MD: ED Physician Facundo Escobar HPI: 03/03 11:41 This 62 yrs old Male presents to ER via EMS with complaints of Near syncope sp3 and vomiting. 11:41 62-year-old male with history of follicular lymphoma recently diagnosed in December 2021 sp3 currently on chemotherapy directed by [facility] in [place] now presents to the ED for chief complaint near syncope and emesis. Patient states that he almost passed out and has been feeling weak last 2 days. Last night he "might of eaten some bad food" and today he had a lot of "gastritis and acid" she believes led to his symptoms. He denies any shortness of breath, chest pain, headache, neck pain, diarrhea, fever, any other symptoms on ROS at this time. Patient states that he had a platelet transfusion last week. He has had pancytopenia with all levels being low according to his family.. Historical: - Allergies: 11:03 No Known Allergies; ab2 - PMHx: 11:03 dehydration; Sleep Apnea; low testosterone; ab2 - Immunization history:: Adult Immunizations up to date. - Social history:: Smoking status: Patient denies any tobacco usage or history of. ROS: 11:43 Constitutional: Negative for fever, chills, and weight loss, Eyes: Negative for injury, sp3 pain, redness, and discharge, ENT: Negative for injury, pain, and discharge, Neck: Negative for injury, pain, and swelling, Cardiovascular: Negative for chest pain, palpitations, and edema, Respiratory: Negative for shortness of breath, cough, wheezing, and pleuritic chest pain, Back: Negative for injury and pain, : Negative for injury, bleeding, discharge, and swelling, MS/Extremity: Negative for injury and deformity, Skin: Negative for injury, rash, and discoloration, Psych: Negative for depression, anxiety, suicide ideation, homicidal ideation, and hallucinations, Allergy/Immunology: Negative for hives, rash, and allergies, Endocrine: Negative for neck swelling, polydipsia, polyuria, polyphagia, and marked weight changes. 11:43 Abdomen/GI: Positive for nausea, vomiting. 11:43 Neuro: Positive for near syncope. Exam: 11:43 Constitutional: This is a well developed, well nourished patient who is awake, alert, sp3 and in no acute distress. Head/Face: Normocephalic, atraumatic. Eyes: Pupils equal round and reactive to light, extra-ocular motions intact. Lids and lashes normal. Conjunctiva and sclera are non-icteric and not injected. Cornea within normal limits. Periorbital areas with no swelling, redness, or edema. ENT: Nares patent. No nasal discharge, no septal abnormalities noted. External auditory canals are clear. Oropharynx with no redness, swelling, or masses, exudates, or evidence of obstruction, uvula midline. Mucous membranes moist. Neck: Trachea midline, no thyromegaly or masses palpated, and no cervical lymphadenopathy. Supple, full range of motion without nuchal rigidity, or vertebral point tenderness. No Meningismus. Chest/axilla: Normal chest wall appearance and motion. Nontender with no deformity. No lesions are appreciated. Cardiovascular: Regular rate and rhythm with a normal S1 and S2. No gallops, murmurs, or rubs. Normal PMI, no JVD. No pulse deficits. Respiratory: Lungs have equal breath sounds bilaterally, clear to auscultation and percussion. No rales, rhonchi or wheezes noted. No increased work of breathing, no retractions or nasal flaring. Back: No spinal tenderness. No costovertebral tenderness. Full range of motion. MS/ Extremity: Pulses equal, no cyanosis. Neurovascular intact. Full, normal range of motion. Neuro: Awake and alert, GCS 15, oriented to person, place, time, and situation. Cranial nerves II-XII grossly intact. Motor strength 5/5 in all extremities. Sensory grossly intact. Cerebellar exam normal. Normal gait. Psych: Awake, alert, with orientation to person, place and time. Behavior, mood, and affect are within normal limits. 11:43 Abdomen/GI: Is having active emesis in the ED. No abdominal pain per se and no peritoneal signs.. 11:43 Skin: Positive pallor diffusely.. Vital Signs: 11:00 BP 120 / 56; Pulse 94; Resp 17; Temp 97.8; Pulse Ox 98% on R/A; Weight 92.99 kg; Height ab2 5 ft. 2 in. (157.48 cm); Pain 0/10; 11:44 BP 118 / 75; Pulse 90; Resp 17; Pulse Ox 100% on R/A; ab2 12:25 BP 80 / 46; Pulse 95; Resp 17; Pulse Ox 100% on R/A; ab2 12:37 BP 112 / 61; Pulse 97; Resp 16; Pulse Ox 98% on R/A; ab2 13:24 BP 99 / 54; Pulse 101; Resp 17; Temp 98.5; Pulse Ox 100% on R/A; ab2 13:29 BP 91 / 50; Pulse 99; Resp 17; Temp 98.4; Pulse Ox 100% on R/A; ab2 13:34 BP 111 / 57; Pulse 99; Resp 17; Temp 98.4; Pulse Ox 98% on R/A; ab2 13:39 BP 96 / 83; Pulse 105; Resp 17; Temp 98.7; Pulse Ox 100% on R/A; ab2 13:54 BP 125 / 59; Pulse 100; Resp 17; Temp 98.9; Pulse Ox 100% on R/A; ab2 14:24 BP 106 / 50; Pulse 98; Resp 17; Temp 99.0; Pulse Ox 99% on R/A; ab2 14:54 BP 119 / 60; Pulse 103; Resp 16; Temp 99.0; Pulse Ox 100% on R/A; ab2 15:14 BP 120 / 63; Pulse 101; Resp 16; Temp 99.1; Pulse Ox 100% on R/A; ab2 15:30 BP 126 / 64; Pulse 110; Resp 17; Temp 99.5; Pulse Ox 100% on R/A; ab2 15:35 BP 129 / 64; Pulse 113; Resp 17; Temp 99.3; Pulse Ox 100% on R/A; ab2 15:40 BP 124 / 62; Pulse 111; Resp 17; Temp 99.7; Pulse Ox 100% on R/A; ab2 15:45 BP 119 / 62; Pulse 108; Resp 17; Temp 99.0; Pulse Ox 100% on R/A; ab2 16:00 BP 116 / 62; Pulse 107; Resp 17; Temp 98.4(O); Pulse Ox 100% on R/A; ab2 11:00 Body Mass Index 37.49 (92.99 kg, 157.48 cm) ab2 MDM: 11:03 Patient medically screened. sp3 11:44 Data reviewed: vital signs, nurses notes. ED course: 62-year-old cancer patient now sp3 with near syncope. Hemoglobin is a 6.8 along with neutropenia. This is presumed to be due to his chemotherapy. Patient is afebrile and has no infectious symptoms. Transfused 2 units of PRBCs and monitor patient. Remainder of work-up is pending.. 12:11 ED course: I discussed with patient his need for blood and continued emesis and sp3 therefore we will admit him for 23 hours observation to complete transfusion continue dealing with emesis and mild dehydration. Hold IV fluids secondary to patient receiving blood and then administer further if needed. Again patient is afebrile and I am not suspicious for infection even though he is neutropenic.. 12:39 ED course: EKG demonstrates normal sinus rhythm at 92 bpm with normal intervals, normal sp3 axis, normal QRS, nonspecific diffuse ST/T changes without evidence of ischemia.. ED course: Patient had another near syncopal episode along with possible seizure activity. CT head was normal and labs reviewed. We will just watch for now as obvious seizure was not witnessed. Patient to be admitted and we will reevaluate after blood transfusion is complete.. 03/03 11:04 Order name: Basic Metabolic Panel; Complete Time: 12:10 sp3 03/03 11:04 Order name: CBC with Diff sp3 03/03 11:04 Order name: Hepatic Function; Complete Time: 12:10 sp3 03/03 11:04 Order name: Lipase; Complete Time: 12:10 sp3 03/03 11:04 Order name: Magnesium; Complete Time: 12:10 sp3 03/03 11:04 Order name: Protime (+inr); Complete Time: 12:10 sp3 03/03 11:04 Order name: Ptt, Activated; Complete Time: 12:10 sp3 03/03 11:04 Order name: Troponin High Sensitivity; Complete Time: 12:10 sp3 03/03 11:37 Order name: Type And Screen sp3 03/03 11:39 Order name: Type and Screen EDMS 03/03 12:10 Order name: COVID-19 SARS RT PCR (Document "Date of Onset" if Symptomatic) ab2 03/03 12:36 Order name: Manual Differential EDMS 03/03 11:04 Order name: CT Head Brain wo Cont; Complete Time: 12:10 sp3 03/03 11:04 Order name: EKG; Complete Time: 11:05 sp3 03/03 11:04 Order name: Cardiac monitoring; Complete Time: 11:13 sp3 03/03 11:04 Order name: EKG - Nurse/Tech; Complete Time: 11:37 sp3 03/03 11:04 Order name: IV Saline Lock; Complete Time: 11:13 sp3 03/03 11:04 Order name: Labs collected and sent; Complete Time: 11:13 sp3 03/03 11:04 Order name: NPO; Complete Time: 11:13 sp3 03/03 11:04 Order name: O2 Per Protocol; Complete Time: 11:13 sp3 03/03 12:38 Order name: ABO/RH no charge EDMS 03/03 12:57 Order name: Bb Add On kj1 03/03 14:12 Order name: Regular EDMS 03/03 14:12 Order name: CBC with Automated Diff EDMS 03/03 14:12 Order name: CBC with Automated Diff EDMS 03/03 14:12 Order name: Comprehensive Metabolic Panel EDMS 03/03 14:12 Order name: Comprehensive Metabolic Panel EDMS 03/03 11:04 Order name: O2 Sat Monitoring; Complete Time: 11:13 sp3 Administered Medications: 11:54 Drug: Zofran (Ondansetron) 4 mg Route: IVP; Site: left antecubital; ab2 Disposition Summary: 03/03/22 12:14 Hospitalization Ordered Hospitalization Status: Observation sp3 Provider: Chay Sanchez sp3 Location: Telemetry/MedSurg (observation) sp3 Condition: Stable sp3 Problem: an acute exacerbation sp3 Symptoms: have worsened sp3 Bed/Room Type: Standard sp3 Room Assignment: [facility](03/03/22 15:18) dw Diagnosis - Syncope Near sp3 - Antineoplastic chemotherapy induced pancytopenia sp3 - Vomiting sp3 Forms: - Medication Reconciliation Form sp3 - SBAR form sp3 Signatures: Dispatcher [employer] EDMS Gemma Baker RN RN dw Facundo Escobar MD MD sp3 Riley Velasquez ab2 Corrections: (The following items were deleted from the chart) 12:36 11:37 CBC Smear Scan ordered. EDMS EDMS 15:18 12:14 sp3 dw
--- NOTE | 2022-03-03 12:15 | ER ---
Nurse's Notes [facility] Name: Alejandro Elizabeth Age: 62 yrs Sex: Male : 1960 Arrival Date: 03/03/2022 Time: 10:55 Bed 25 Private MD: Diagnosis: Syncope Near;Antineoplastic chemotherapy induced pancytopenia;Vomiting Presentation: 03/03 11:00 Chief complaint: EMS states: Patient was walking and had a near syncope event at home ab2 and had an episode of n/v. EMS gave 4 zofran IV and initiated and NS bolus. Per patient did not fall or hit his head. EMS arrived and patients BP was 90/50. Coronavirus screen: Vaccine status: Patient reports receiving the 2nd dose of the covid vaccine. Client denies travel out of the [place] in the last 14 days. At this time, the client does not indicate any symptoms associated with coronavirus-19. Ebola Screen: Patient negative for fever greater than or equal to 101.5 degrees Fahrenheit, and additional compatible Ebola Virus Disease symptoms Patient denies exposure to infectious person. Patient denies travel to an Ebola-affected area in the 21 days before illness onset. No symptoms or risks identified at this time. Initial Sepsis Screen: Does the patient meet any 2 criteria? No. Patient's initial sepsis screen is negative. Does the patient have a suspected source of infection? No. Patient's initial sepsis screen is negative. Risk Assessment: Do you want to hurt yourself or someone else? Patient reports no desire to harm self or others. Onset of symptoms is unknown. 11:00 Method Of Arrival: EMS: [facility] ab2 11:00 Acuity: JARED 3 ab2 Historical: - Allergies: 11:03 No Known Allergies; ab2 - PMHx: 11:03 dehydration; Sleep Apnea; low testosterone; ab2 - Immunization history:: Adult Immunizations up to date. - Social history:: Smoking status: Patient denies any tobacco usage or history of. Screenin:03 Abuse screen: Denies threats or abuse. Denies injuries from another. Nutritional ab2 screening: No deficits noted. Tuberculosis screening: No symptoms or risk factors identified. Fall Risk None identified. Assessment: 11:03 General: Appears in no apparent distress. uncomfortable, Behavior is calm, cooperative, ab2 appropriate for age. Pain: Denies pain. Neuro: Level of Consciousness is awake, alert, obeys commands, Oriented to person, place, time, situation, Appropriate for age Web[employer] Administrator are equal bilaterally Moves all extremities. Speech is normal, Facial symmetry appears normal, Intact. Cardiovascular: Reports near-snycope Denies chest pain, shortness of breath, Heart tones S1 S2 present Patient's skin is warm and dry. Respiratory: Airway is patent Respiratory effort is even, unlabored, Respiratory pattern is regular, symmetrical, Breath sounds are clear bilaterally. GI: No deficits noted. No signs and/or symptoms were reported involving the gastrointestinal system. Abdomen is round non-distended, Bowel sounds present X 4 quads. Abd is soft and non tender. : No deficits noted. No signs and/or symptoms were reported regarding the genitourinary system. EENT: No deficits noted. No signs and/or symptoms were reported regarding the EENT system. Derm: Skin is intact, is healthy with good turgor, Skin is pink, warm \T\ dry. Musculoskeletal: No deficits noted. No signs and/or symptoms reported regarding the musculoskeletal system. 12:06 Reassessment: Patient appears in no apparent distress at this time. No changes from ab2 previously documented assessment. Pt resting in bed, at bedside. Pt states Zofran helped with the nausea and vomiting. Pt to be admitted, awaiting room for admission. Denies any needs at this time. 12:25 Reassessment: Patients called me as the patient was experiencing dizziness. Pt was ab2 still alert just minimally responsive. I called for Dr. Escobar and Dr. Escobar came immediately to bedside and believed patient had a small seizure. Pt was nonverbal and had facial twitching movements for approx 7 seconds, patient then came fully responsive and states he is starting to feel better. BP is low, Dr. Escobar aware, waiting on blood for transfusion. 13:24 Reassessment: Patient appears in no apparent distress at this time. Began transfusion. ab2 Pt tolerating well. no s/s of adverse reaction at this time. Vital signs stable. 13:29 Reassessment: Patient appears in no apparent distress at this time. Blood is still ab2 transfusing. No s/s of reaction. Pt tolerating well. 13:34 Reassessment: Patient appears in no apparent distress at this time. No s/s of ab2 transfusion reaction at this time. Pt tolerating well. Denies any needs. Vital signs stable. 13:39 Reassessment: Patient appears in no apparent distress at this time. No s/s of ab2 transfusion reaction noted at this time. Pt tolerating well. Denies any needs. 13:54 Reassessment: Patient appears in no apparent distress at this time. Pt resting in bed. ab2 Blood is transfusing. Pt tolerating well, with no s/s of reaction noted. 14:24 Reassessment: Patient appears in no apparent distress at this time. Pt tolerating ab2 infusion with no s/s of reaction noted at this time. Vital signs remain stable, pt denies any needs. 14:54 Reassessment: Patient appears in no apparent distress at this time. Pt resting in bed ab2 comfortably, denies any needs at this time. Pt denies any s/s of transfusion reaction. 15:14 Reassessment: Patient appears in no apparent distress at this time. Transfusion ab2 complete. Pt tolerated well with no s/s of reaction noted. 15:30 Reassessment: Patient appears in no apparent distress at this time. No changes from ab2 previously documented assessment. Began 2nd unit of PRBC. Pt tolerating well. Denies any s/s of transfusion reaction. 15:35 Reassessment: Patient appears in no apparent distress at this time. Denies any s/s of ab2 transfusion reaction. Pt denies any needs. Pt laying in bed comfortably. 15:40 Reassessment: Patient appears in no apparent distress at this time. Pt resting in bed, ab2 denies any needs. No s/s of transfusion reaction noted at this time. 15:45 Reassessment: Patient appears in no apparent distress at this time. No s/s of ab2 transfusion reaction noted. Pt laying comfortably, denies any needs at this time. 16:00 Reassessment: Patient appears in no apparent distress at this time. Pt tolerating ab2 infusion well. Pt denies any s/s of transfusion reaction. Vital Signs: 11:00 BP 120 / 56; Pulse 94; Resp 17; Temp 97.8; Pulse Ox 98% on R/A; Weight 92.99 kg; Height ab2 5 ft. 2 in. (157.48 cm); Pain 0/10; 11:44 BP 118 / 75; Pulse 90; Resp 17; Pulse Ox 100% on R/A; ab2 12:25 BP 80 / 46; Pulse 95; Resp 17; Pulse Ox 100% on R/A; ab2 12:37 BP 112 / 61; Pulse 97; Resp 16; Pulse Ox 98% on R/A; ab2 13:24 BP 99 / 54; Pulse 101; Resp 17; Temp 98.5; Pulse Ox 100% on R/A; ab2 13:29 BP 91 / 50; Pulse 99; Resp 17; Temp 98.4; Pulse Ox 100% on R/A; ab2 13:34 BP 111 / 57; Pulse 99; Resp 17; Temp 98.4; Pulse Ox 98% on R/A; ab2 13:39 BP 96 / 83; Pulse 105; Resp 17; Temp 98.7; Pulse Ox 100% on R/A; ab2 13:54 BP 125 / 59; Pulse 100; Resp 17; Temp 98.9; Pulse Ox 100% on R/A; ab2 14:24 BP 106 / 50; Pulse 98; Resp 17; Temp 99.0; Pulse Ox 99% on R/A; ab2 14:54 BP 119 / 60; Pulse 103; Resp 16; Temp 99.0; Pulse Ox 100% on R/A; ab2 15:14 BP 120 / 63; Pulse 101; Resp 16; Temp 99.1; Pulse Ox 100% on R/A; ab2 15:30 BP 126 / 64; Pulse 110; Resp 17; Temp 99.5; Pulse Ox 100% on R/A; ab2 15:35 BP 129 / 64; Pulse 113; Resp 17; Temp 99.3; Pulse Ox 100% on R/A; ab2 15:40 BP 124 / 62; Pulse 111; Resp 17; Temp 99.7; Pulse Ox 100% on R/A; ab2 15:45 BP 119 / 62; Pulse 108; Resp 17; Temp 99.0; Pulse Ox 100% on R/A; ab2 16:00 BP 116 / 62; Pulse 107; Resp 17; Temp 98.4(O); Pulse Ox 100% on R/A; ab2 11:00 Body Mass Index 37.49 (92.99 kg, 157.48 cm) ab2 ED Course: 10:55 Patient arrived in ED. ab2 10:55 Facundo Escobar MD is Attending Physician. sp3 11:00 Riley Velasquez is Primary Nurse. ab2 11:03 Triage completed. ab2 11:05 Arm band placed on left wrist. ab2 11:05 Patient has correct armband on for positive identification. Bed in low position. Call ab2 light in reach. Side rails up X2. Adult w/ patient. 11:05 No provider procedures requiring assistance completed. Maintain EMS IV. Dressing ab2 intact. Good blood return noted. Site clean \T\ dry. Gauge \T\ site: 20 L AC. 11:13 Basic Metabolic Panel Sent. ab2 11:13 CBC with Diff Sent. ab2 11:14 Hepatic Function Sent. ab2 11:14 Lipase Sent. ab2 11:14 Magnesium Sent. ab2 11:14 Protime (+inr) Sent. ab2 11:14 Ptt, Activated Sent. ab2 11:24 CT Head Brain wo Cont In Process Unspecified. EDMS 12:00 Type And Screen Sent. zm 12:00 Type and Screen Sent. zm 12:00 CBC with Diff Sent. zm 12:13 Chay Sanchez MD is Hospitalizing Provider. sp3 13:02 caleb notified two units available \[id number] for pt. kj1 15:52 Report given to Maria Dolores BLAIR on medsur. All questions answered. Maria Dolores made aware of low ab2 grade temperature that is starting. Dr. Sanchez paged to inform of temp. 15:54 Patient admitted, IV remains in place. ab2 Administered Medications: 11:54 Drug: Zofran (Ondansetron) 4 mg Route: IVP; Site: left antecubital; ab2 Outcome: 12:14 Decision to Hospitalize by Provider. sp3 15:53 Admitted to Med/surg accompanied by nurse, via stretcher, room 206, with chart, Report ab2 called to Maria Dolores BLAIR 15:53 Condition: good 16:24 Patient left the ED. Signatures: Dispatcher [employer] EDMS Eleonora Smith RN RN Asha Copeland kj1 Facundo Escobar MD MD sp3 Riley Velasquez ab2 Linda Muir Corrections: (The following items were deleted from the chart) 12:36 12:00 CBC Smear Scan drawn and sent. charbel EDMS
[2022-03-03 12:47] LABS: Blood Morphology Comment NOTED (NOT SEEN)
[2022-03-03 12:48] LABS: Anisocytosis 3+; Elliptocytes 1+; Hypochromasia 3+; Platelet Estimate DECR; Poikilocytosis 2+
[2022-03-03] MEDS ORDERED: NA CHLORIDE 0.9% 250 ML ONE (13:23)
[2022-03-03] MEDS ORDERED: TBO-FILGRASTIM 300 MCG/0.5 ML SYR SQ ONE (14:09)
[2022-03-03] MEDS ORDERED: ACETAMINOPHEN 500 MG TAB PO PRN (14:09)
[2022-03-03] MEDS ORDERED: MORPHINE 2 MG/ML SYR IV PRN (14:09)
[2022-03-03 17:14] VITALS: BMI 37.5
[2022-03-03] MEDS: NA CHLORIDE 0.9% 1,000 ML IV SCH (17:31)
[2022-03-03] MEDS: ONDANSETRON 4 MG/2 ML VIAL IV PRN (17:31)
[2022-03-03 18:57] LABS: Hematocrit 29.8 % (39.6-49.0)
[2022-03-03] MEDS ORDERED: DICLOFENAC SOD D.R. 75 MG TAB PO PRN (19:27)
[2022-03-03] MEDS ORDERED: ONDANSETRON 4 MG (ODT) TAB PO PRN (19:27)
--- NOTE | 2022-03-03 19:29 | P.HP ---
Certification for Inpatient Patient admitted to: Inpatient With expected LOS: >2 Midnights Patient will require the following post-hospital care: None Practitioner: I am a practitioner with admitting privileges, knowledge of patient current condition, hospital course, and medical plan of care. Services: Services provided to patient in accordance with Admission requirements found in Title 42 Section 412.3 of the Code of Federal Regulations Patient History Date of Service: 03/03/22 Reason for admission: Pancytopenia secondary to chemotherapy History of Present Illness: Patient is a 62-year-old gentleman who came to the hospital with lightheadedness. Patient had a near syncopal episode. Decision was made to come to the hospital for evaluation. Patient has been on chemotherapy over the last week. Patient was on chemotherapy on Sunday, Sunday, Sunday, and . Patient apparently states that he got rituximab. Patient was found to be severely anemic. Patient is white blood cell count is also severely diminished. Patient will be given 2 units of packed red blood cells. Patient will also get Neupogen. Patient will be admitted for observation and we will continue with IV fluids. Allergies No Known Allergies Allergy (Verified 07/16/20 22:44) Home Medications: Atorvastatin Calcium 1 tab PO BEDTIME 07/16/20 Desmopressin Acetate 1 tab PO BID 07/16/20 Diclofenac Sodium 1 tab PO BID PRN 07/16/20 Ergocalciferol (Vitamin D2) [Vitamin D2] 1 cap PO SEECOM 07/16/20 Levothyroxine [Synthroid*] 75 mcg PO DAILY 07/16/20 Meclizine HCl [Travel-Ease] 1 tab PO TID PRN 07/16/20 Multivit-Mins/Iron/Folic/Lycop [Centrum Men's Tablet] 1 tab PO DAILY 07/16/20 Ondansetron [Ondansetron Odt] 1 tab PO TID PRN 07/16/20 Pantoprazole Sodium 1 tab PO DAILY 07/16/20 Testosterone Cypionate [Testone Cik] 1 ml IM SEECOM 07/16/20 gemfibroziL [Gemfibrozil] 1 tab PO BID 07/16/20 Polyethylene Glycol 3350 [Miralax] 17 gm PO DAILY 03/03/22 - Past Medical/Surgical History Has patient received pneumonia vaccine in the past: No Diabetic: No -: Diabetes insipidus -: Hyperlipidemia -: GERD -: Sleep apnea -: Low Testostrone -: 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 - Family History Mother Medical History: Heart disease, Diabetes Notes: Lupus Father Medical History: Lung disease, Cancer Notes: Throat and Skin Cancer, [place] - Social History Smoking Status: Former smoker Alcohol use: No Caffeine use: No Place of Residence: Home Review of Systems 10-point ROS is otherwise unremarkable Physical Examination - Vital Signs Temperature: 98.4 F Blood Pressure: 116/62 Pulse: 107 Respirations: 17 Pulse Ox (%): 100 - Physical Exam General: Alert, In no apparent distress, Oriented x3 HEENT: Atraumatic, PERRLA, Mucous membr. moist/pink, EOMI, Sclerae nonicteric Neck: Supple, 2+ carotid pulse no bruit, No LAD, Without JVD or thyroid abnormality Respiratory: Clear to auscultation bilaterally, Normal air movement Cardiovascular: Regular rate/rhythm, Normal S1 S2 Gastrointestinal: Normal bowel sounds, No tenderness Musculoskeletal: No tenderness Integumentary: No rashes Neurological: Normal gait, Normal speech, Normal strength at 5/5 x4 extr, Normal tone, Normal affect Lymphatics: No axilla or inguinal lymphadenopathy - Studies Laboratory Data (last 24 hrs) 03/03/22 11:13: PT 14.4 H, INR 1.30, APTT 32.6 03/03/22 11:13: WBC 0.4 L*, Hgb 6.6 L*, Hct 18.8 L*, Plt Count 111 L 03/03/22 11:13: Sodium 132 L, Potassium 3.7, BUN 13, Creatinine 0.81, Glucose 109 H, Magnesium 1.5 L D, Total Bilirubin 0.7, AST 10 L, ALT 18, Alkaline Phosphatase 106, Lipase 50 L Assessment & Plan - Problems (Diagnosis) (1) Pancytopenia Current Visit: Yes Status: Acute (2) Near syncope Current Visit: Yes Status: Acute (3) History of diabetes insipidus Current Visit: Yes Status: Acute - Plan Plan: 1. Continue with IV fluids 2. 2 units of packed red blood cells transfused 3. Neupogen 4. Repeat labs in the morning 5. Continue with desmopressin for history of diabetes insipidus 6. GI DVT prophylaxis Discharge Plan: Home Plan to discharge in: Greater than 2 days - Advance Directives Does patient have a Living Will: No Does patient have a Durable POA for Healthcare: Yes - Code Status/Comfort Care Code Status Assessed: Yes Code Status: Full Code Critical Care: No Time Spent Managing PTS Care (In Minutes): 45
[2022-03-03] MEDS ORDERED: TESTOSTERONE CYPIONATE 200 MG/ML IM SCH (19:30)
[2022-03-03] MEDS: ATORVASTATIN 20 MG TAB PO SCH (21:00)
[2022-03-03] MEDS: DESMOPRESSIN PO SCH (21:00)
[2022-03-03] MEDS: gemfibroziL 600 MG TAB PO SCH (21:00)
[2022-03-03] MEDS: FAMOTIDINE 20 MG/2 ML VIAL IV PRN (22:18)
[2022-03-04] MEDS: ONDANSETRON 4 MG/2 ML VIAL IV PRN ×2 (03:00→10:18)
[2022-03-04] MEDS: NA CHLORIDE 0.9% 1,000 ML IV SCH ×4 (04:20→23:27)
[2022-03-04 04:30] LABS: Absolute Lymphocytes (CBC) 0.2 K/uL (0.7-4.9); Hematocrit 27.3 % (39.6-49.0); RBC Red Blood Cell Count 3.17 M/uL (4.33-5.43)
[2022-03-04 04:31] LABS: RBC Red Blood Cell Count 3.12 M/uL (4.33-5.43)
[2022-03-04 04:47] LABS: Albumin 3.5 g/dL (3.4-5.0); Bilirubin Total 0.8 mg/dL (0.2-1.0); Potassium 4.4 mmol/L (3.5-5.1); Protein, Total 7.1 g/dL (6.4-8.2)
[2022-03-04 05:13] LABS: Folic Acid, (Folate) 19.3 ng/mL (3.1-17.5)
[2022-03-04 05:14] LABS: Magnesium 1.3 mg/dL (1.8-2.4)
[2022-03-04] MEDS ORDERED: Magnesium Sulfate 2gm IVPB 2 G/50 ML BAG IV ONE (07:30)
[2022-03-04] MEDS ORDERED: MULTIVIT W/ MINERAL TAB PO SCH (09:00)
[2022-03-04] MEDS: DESMOPRESSIN PO SCH ×2 (09:00→21:43)
--- NOTE | 2022-03-04 09:24 | EKG ---
Test Date: 2022-03-03 Test Time: 11:29:51 Technician Test Systems: PEGGY MEASUREMENT RESULTS: Intervals: Rate: 92 DE: 162 QRSD: 86 QT: 330 QTc: 408 [place]: P: 98 DE: 162 QRS: 34 T: 71 INTERPRETIVE STATEMENTS: Normal sinus rhythm Nonspecific ST and T wave abnormality Abnormal ECG Compared to ECG 07/16/2020 19:12:49 ST (T wave) deviation now present Electronically Signed On 03-04-22 09:22:36 CDT by John Morris
[2022-03-04] MEDS: POLYETHYL GLY 3350 17 GM/DOSE PO SCH (10:20)
[2022-03-04] MEDS: LEVOTHYROXINE SOD 0.075 MG TAB PO SCH (10:22)
[2022-03-04] MEDS: PANTOPRAZOLE 40MG TABLET PO SCH (10:22)
[2022-03-04] MEDS: gemfibroziL 600 MG TAB PO SCH ×2 (10:22→21:42)
[2022-03-04] MEDS ORDERED: SOD FERRIC GLUC COMPLX/SUCROSE 125 MG in NA CHLORIDE 0.9% 100 ML IV ONE (11:00)
[2022-03-04] MEDS ORDERED: HYDROCORTISONE SUC 100 MG INJ IV ONE (13:00)
[2022-03-04] MEDS ORDERED: CEFEPIME 2 GM in NA CHLORIDE 0.9% 100 ML IV ONE (15:00)
[2022-03-04] MEDS: MECLIZINE HCL 12.5 MG TAB PO PRN (15:18)
--- NOTE | 2022-03-04 21:41 | P.PN ---
Subjective Date of Service: 03/04/22 Subjective: No new changes, Improving, Other (nausea and vomiting; overall improved) Review of Systems 10-point ROS is otherwise unremarkable Physical Examination - Vital Signs Temperature: 96.8 F Blood Pressure: 119/63 Pulse: 94 Respirations: 20 Pulse Ox (%): 97 - Physical Exam General: Alert, In no apparent distress HEENT: Atraumatic, PERRLA, EOMI Neck: Supple, JVD not distended Respiratory: Clear to auscultation bilaterally, Normal air movement Cardiovascular: Regular rate/rhythm, Normal S1 S2 Gastrointestinal: Normal bowel sounds, No tenderness Musculoskeletal: No tenderness Integumentary: No rashes Neurological: Normal speech, Normal tone, Normal affect Lymphatics: No axilla or inguinal lymphadenopathy - Studies Medications List Reviewed: Yes Assessment & Plan - Problems (Diagnosis) (1) Pancytopenia Current Visit: Yes Status: Acute (2) Near syncope Current Visit: Yes Status: Acute (3) History of diabetes insipidus Current Visit: Yes Status: Acute (4) Nausea and vomiting Current Visit: Yes Status: Acute - Plan Plan: 1. Continue with IV fluids 2. 2 units of packed red blood cells transfused 3. Neupogen 4. Repeat labs in the morning 5. Continue with desmopressin for history of diabetes insipidus 6. GI DVT prophylaxis - Advance Directives Does patient have a Living Will: No Does patient have a Durable POA for Healthcare: Yes - Code Status/Comfort Care Code Status: Full Code
[2022-03-04] MEDS: ATORVASTATIN 20 MG TAB PO SCH (21:42)
[2022-03-04] MEDS: FAMOTIDINE 20 MG/2 ML VIAL IV PRN (21:43)
[2022-03-05 01:01] VITALS: O2SAT 97
[2022-03-05] MEDS: NA CHLORIDE 0.9% 1,000 ML IV SCH ×2 (06:07→13:02)
[2022-03-05] MEDS ORDERED: DRISDOL (VITAMIN D=ERGOCALCIFEROL) 50000 UNIT CAP PO SCH ×2 (08:00→11:00)
[2022-03-05] MEDS: POLYETHYL GLY 3350 17 GM/DOSE PO SCH (09:00)
[2022-03-05] MEDS: DESMOPRESSIN PO SCH (10:27)
[2022-03-05] MEDS: gemfibroziL 600 MG TAB PO SCH (10:28)
[2022-03-05] MEDS: LEVOTHYROXINE SOD 0.075 MG TAB PO SCH (10:28)
[2022-03-05] MEDS: PANTOPRAZOLE 40MG TABLET PO SCH (10:28)
[2022-03-05] MEDS: FAMOTIDINE 20 MG/2 ML VIAL IV PRN (10:58)
[2022-03-05] MEDS: MECLIZINE HCL 12.5 MG TAB PO PRN (11:08)
[2022-03-05] MEDS ORDERED: SOD FERRIC GLUC COMPLX/SUCROSE 125 MG in NA CHLORIDE 0.9% 100 ML IV SCH (12:00)
[2022-03-05 12:16] LABS: Absolute Lymphocytes (CBC) 0.5 K/uL (0.7-4.9); Hematocrit 25.4 % (39.6-49.0); Lymphocytes % 3.9 % (15.3-44.8); RBC Red Blood Cell Count 2.95 M/uL (4.33-5.43)
[2022-03-05 20:43] VITALS: BP 119/63; TEMP 96.8
--- NOTE | 2022-03-05 20:44 | P.DS ---
Discharge Date: 03/05/22 Disposition: ROUTINE DISCHARGE Discharge Condition: GOOD Reason for Admission: Pancytopenia secondary to chemotherapy - Problems (1) Pancytopenia Status: Acute (2) Near syncope Status: Acute (3) History of diabetes insipidus Status: Acute (4) Nausea and vomiting Status: Acute Brief History of Present Illness: Patient is a 62-year-old gentleman who came to the hospital with lightheadedness. Patient had a near syncopal episode. Decision was made to c ome to the hospital for evaluation. Patient has been on chemotherapy over the last week. Patient was on chemotherapy on Sunday, Sunday, Sunday, and . Patient apparently states that he got rituximab. Patient was found to be severely anemic. Patient is white blood cell count is also severely diminished. Patient will be given 2 units of packed red blood cells. Patient will also get Neupogen. Patient will be admitted for observation and we will continue with IV fluids. Hospital Course: Symptoms have improved. White count is stable and hemoglobin is stable. Patient platelet count is stable as well. Nausea and vomiting has resolved. Patient is tolerating diet. At this time, patient is stable for discharge with outpatient follow-up with oncology. Vital Signs/Physical Exam: Temp Pulse Resp BP Pulse Ox 96.8 F 94 H 20 119/63 97 03/05/22 20:43 03/05/22 20:43 03/05/22 20:43 03/05/22 20:43 03/05/22 20:43 General: Alert, In no apparent distress, Oriented x3 Laboratory Data at Discharge: WBC 13.6 K/uL (4.3-10.9) H D 03/05/22 11:59 Hgb 8.8 g/dL (13.6-17.9) L 03/05/22 11:59 Hct 25.4 % (39.6-49.0) L 03/05/22 11:59 Plt Count 121 K/uL (152-406) L 03/05/22 11:59 PT 14.4 SECONDS (9.5-12.5) H 03/03/22 11:13 INR 1.30 03/03/22 11:13 APTT 32.6 SECONDS (24.3-36.9) 03/03/22 11:13 Sodium 130 mmol/L (136-145) L 03/04/22 04:18 Potassium 4.4 mmol/L (3.5-5.1) 03/04/22 04:18 BUN 13 mg/dL (7-18) 03/04/22 04:18 Creatinine 1.05 mg/dL (0.55-1.3) 03/04/22 04:18 Glucose 110 mg/dL (74-106) H 03/04/22 04:18 Magnesium 2.3 mg/dL (1.8-2.4) D 03/04/22 12:59 Total Bilirubin 0.8 mg/dL (0.2-1.0) 03/04/22 04:18 AST 9 U/L (15-37) L 03/04/22 04:18 ALT 17 U/L (12-78) 03/04/22 04:18 Alkaline Phosphatase 93 U/L (45-117) 03/04/22 04:18 Lipase 50 U/L (73-393) L 03/03/22 11:13 Home Medications: Atorvastatin Calcium 1 tab PO BEDTIME 07/16/20 Desmopressin Acetate 1 tab PO BID 07/16/20 Diclofenac Sodium 1 tab PO BID PRN 07/16/20 Ergocalciferol (Vitamin D2) [Vitamin D2] 1 cap PO SEECOM 07/16/20 Levothyroxine [Synthroid*] 75 mcg PO DAILY 07/16/20 Meclizine HCl [Travel-Ease] 1 tab PO TID PRN 07/16/20 Multivit-Mins/Iron/Folic/Lycop [Centrum Men's Tablet] 1 tab PO DAILY 07/16/20 Ondansetron [Ondansetron Odt] 1 tab PO TID PRN 07/16/20 Pantoprazole Sodium 1 tab PO DAILY 07/16/20 Testosterone Cypionate [Testone Cik] 1 ml IM SEECOM 07/16/20 gemfibroziL [Gemfibrozil] 1 tab PO BID 07/16/20 Polyethylene Glycol 3350 [Miralax] 17 gm PO DAILY 03/03/22 Cefdinir [Omnicef] 300 mg PO BID #10 capsule 03/05/22 New Medications: Cefdinir [Omnicef] 300 mg PO BID #10 capsule Physician Discharge Instructions: -DC IV and DC home -Follow-up with PCP in 1 to 2 weeks -Follow-up with Oncology in 1 to 2 weeks -Please call Dr. Sanchez at [phone] if any questions regarding hospital stay -Please call nursing station at [phone] if any nursing or medication questions -Return to the emergency room if symptoms worsen Diet: Regular Activity: Fall precautions Followup: OOT,OOT [Primary Care Provider] - Time spent managing pt's care (in minutes): 35
[2022-03-06] MEDS ORDERED: MULTIVIT W/ MINERAL TAB PO SCH (09:00)
== END 2022-03-05 16:08 | disposition home or self-care (01) | DRG 809 ==
LOC: ER 10:54 → ERHOLD 14:15 → 2ND 15:58
PROVIDERS: ADMIT Hospitalist; ATTEND Hospitalist
PROC: 30233N1 Transfusion of Nonautologous Red Blood Cells into Peripheral Vein, Percutaneous Approach (ICD-10-PCS; principal; 2022-03-03)
DX: D61.810 Antineoplastic chemotherapy induced pancytopenia (principal); C85.10 Unspecified B-cell lymphoma, unspecified site; E23.2 Diabetes insipidus; T45.1X5A Adverse effect of antineoplastic and immunosuppressive drugs, initial encounter; R11.2 Nausea with vomiting, unspecified; K21.9 Gastro-esophageal reflux disease without esophagitis; E78.5 Hyperlipidemia, unspecified; Z20.822 Contact with and (suspected) exposure to COVID-19
CPT/HCPCS: 36415; 70450; 80048; 80053; 80076; 82607; 82746; 83540; 83690; 83735; 84484; 85014; 85018; 85025; 85044; 85610; 85730; 86850; 86900; 86901; 93005; 96374; 99285; J0692; J1447; J1720; J2270; J2405; J2916; J3475; J3490; J7030; J7050; J8597; P9016; U0003

== ENCOUNTER 2022-03-24 02:11 | Emergency (ER) | payer OTHER ==
--- OUTSIDE RECORDS SUMMARY | 2022-03-24 02:14 | XMS REPORT | Continuity of Care Document ---
:1960 Author Organization [facility] Address [address] [place] [address] Care Team Providers Name Role Phone YAMILET BLEVINS Attending Clinician Unavailable ALMAZ BABIN Attending Clinician Unavailable KENDY JONES Attending Clinician Unavailable MD OTTO ROLAND Attending Clinician Unavailable DR MAGAN DHALIWAL Attending Clinician Unavailable DIEGO Admitting Clinician Unavailable DR Gabriella DHALIWAL Admitting Clinician Unavailable Payers Payer Name Policy Type Policy Number Effective Date Expiration Date S ource 0345 [id number] 1959 00:00:00 0450 [id number] Problems This patient has no known problems. Allergies, Adverse Reactions, Alerts This patient has no known allergies or adverse reactions. Medications This patient has no known medications. Procedures This patient has no known procedures. Encounters Start End Encounter Admission Attending Care Care Encounter Source Date/Time Date/Time Type Type Clinicians Facility Department ID 2022-03-17 2022-03-17 [facility] [id number] [address] [place] [address] 00:00:00 00:00:00 YAMILET 640 [facility] 2022-03-16 2022-03-16 Outpatient [facility] [id number] [place] [address] 00:00:00 00:00:00 YAMILET 561 [facility] 2022-03-15 2022-03-15 Outpatient [facility] [id number] [place] [address] 00:00:00 00:00:00 YAMILET 490 [facility] 2022-03-14 2022-03-14 Outpatient [facility] [id number] [address] [place] [address] 00:00:00 00:00:00 YAMILET 407 [facility] 2022-03-13 2022-03-13 Outpatient PRATH, [facility] [id number] [address] [place] 00:00:00 00:00:00 YAMILET [address] 2022-03-10 2022-03-10 Outpatient PRATH, [facility] [id number] [address] [place] 00:00:00 00:00:00 YAMILET [address] 2022-03-10 2022-03-10 Outpatient PRATH, [facility] [id number] [address] [place] 00:00:00 00:00:00 YAMILET [address] 2022-03-08 2022-03-08 Outpatient PRATH, [facility] [id number] [address] [place] 00:00:00 00:00:00 YAMILET 899 [facility] 2022-02-24 2022-02-24 Outpatient PRATH, [facility] [id number] [address] [place] 00:00:00 00:00:00 YAMILET [address] 2022-02-23 2022-02-23 Outpatient PRATH, [facility] [id number] [address] [place] 00:00:00 00:00:00 YAMILET 564 [facility] 2022-02-22 2022-02-22 Outpatient PRATH, [facility] [id number] [address] [place] 00:00:00 00:00:00 YAMILET 501 [facility] 2022-02-21 2022-02-21 Outpatient PRATH, [facility] [id number] [address] [place] 00:00:00 00:00:00 YAMILET 458 [facility] 2022-02-20 2022-02-20 Outpatient PRATH, [facility] [id number] [address] [place] 00:00:00 00:00:00 YAMILET 072 [facility] 2022-02-16 2022-02-16 Outpatient SHAN, [facility] [id number] [address] [place] 00:00:00 00:00:00 KESAVAN 711 [facility] 2022-02-14 2022-02-14 Outpatient PRATH, [facility] [id number] [address] [place] 00:00:00 00:00:00 YAMILET [address] 2022-02-14 2022-02-14 Outpatient PRATH, [facility] [id number] [address] [place] 00:00:00 00:00:00 YAMILET [address] 2022-02-13 2022-02-13 Outpatient PRATH, [facility] [id number] [place] 00:00:00 00:00:00 YAMILET [address] 2022-02-08 2022-02-08 Outpatient GEN [facility] [id number] [address] [place] 00:00:00 00:00:00 YAMILET [address] 2022-01-22 2022-02-01 Inpatient [facility] [id number] [place] 00:00:00 00:00:00 ATH SHERRI, [address] 2022-01-10 2022-01-10 [facility] [id number] [address] [place] 17:03:00 23:59:00 MAGAN [facility] [place] 2014-05-22 2014-05-22 [facility] [id number] [address] [place] 11:01:00 23:59:00 [facility] Results Test Description Test Time Test Comments Results Result Comments Source SARS-CoV-2 (COVID-19) RNA [Presence] in Respiratory sp ecimen by 2022-01-22 12:13:01 DEAN with probe detection Test Item Value Reference Range Interpretation Comme nts SARS-CoV-2 (COVID-19) RNA [Presence] in Respiratory specimen by Not detected DEAN with probe detection (test code = 98798-1) Whether patient is employed in a healthcare setting (test code = Un known 36408-7) Whether the patient has symptoms related to condition of interest U nknown (test code = 50318-8) Whether the patient was hospitalized for condition of interest Unkn own (test code = 44812-8) Whether the patient was admitted to intensive care unit (ICU) for U nknown condition of interest (test code = 63372-2) Whether patient resides in a congregate care setting (test code = U nknown 77781-6) status (test code = 82931-5) Unknown Date and time of symptom onset (test code = 36479-4) Unknown CT ANGIO CHEST W AND [id number] 18:42:11 [facility] CENTERName: JDUD DIAMOND : 1960 Sex: MLOCATION: [id number]: 61-year-old male who presents with dyspnea.COMMENT:Axial CT [...]
[2022-03-24 04:56] LABS: Protime INR 1.32
[2022-03-24 04:59] LABS: Absolute Lymphocytes (CBC) 0.1 K/uL (0.7-4.9); Lymphocytes % 31.7 % (15.3-44.8); RBC Red Blood Cell Count 2.18 M/uL (4.33-5.43)
[2022-03-24 05:15] LABS: Albumin 3.2 g/dL (3.4-5.0); Bilirubin Direct 0.3 mg/dL (0-0.2); Bilirubin Total 0.7 mg/dL (0.2-1.0); Magnesium 1.6 mg/dL (1.8-2.4); Potassium 4.1 mmol/L (3.5-5.1); Protein, Total 6.3 g/dL (6.4-8.2); Troponin High Sensitivity 3.6 pg/mL (<58.9)
[2022-03-24 05:28] LABS: ACANTHOCYTE 2+; Anisocytosis 1+; Blood Morphology Comment NOTED (NOT SEEN); Ovalocytes 1+; Platelet Estimate DECR; Teardrop Cell 1+
--- NOTE | 2022-03-24 06:48 | EDPHYS ---
Physician Documentation [facility] Name: Alejandro Elizabeth Age: 62 yrs Sex: Male : 1960 Arrival Date: 03/24/2022 Time: 02:14 Bed 17 Private MD: ED Physician Mike Shepherd HPI: 03/24 04:10 This 62 yrs old Male presents to ER via Ambulatory with complaints of General 7 Weakness. 04:10 Generalized fatigue/weakness. mh7 04:10 Onset: The symptoms/episode began/occurred 1 week(s) ago. mh7 04:10 Severity of symptoms: At their worst the symptoms were moderate 4 day(s) ago, in the [facility] emergency department the symptoms have improved mildly. The patient has experienced similar episodes in the past, several times. Symptoms usually come after chemotherapy.. Historical: - Allergies: 02: rotexaban; bb - PMHx: :31 lymphoma; bb - Immunization history:: Pfizer x 2. - Social history:: Smoking status: Patient denies any tobacco usage or history of. ROS: 04:10 Constitutional: Negative for fever, chills, and weight loss, Eyes: Negative for injury, mh7 pain, redness, and discharge, ENT: Negative for injury, pain, and discharge, Neck: Negative for injury, pain, and swelling, Cardiovascular: Negative for chest pain, palpitations, and edema, Respiratory: Negative for shortness of breath, cough, wheezing, and pleuritic chest pain, Abdomen/GI: Negative for abdominal pain, nausea, vomiting, diarrhea, and constipation, Back: Negative for injury and pain, : Negative for injury, bleeding, discharge, and swelling, MS/Extremity: Negative for injury and deformity, Skin: Negative for injury, rash, and discoloration, Psych: Negative for depression, anxiety, suicide ideation, homicidal ideation, and hallucinations, Allergy/Immunology: Negative for hives, rash, and allergies, Endocrine: Negative for neck swelling, polydipsia, polyuria, polyphagia, and marked weight changes, Hematologic/Lymphatic: Negative for swollen nodes, abnormal bleeding, and unusual bruising. 04:10 Neuro: Negative for altered mental status, dizziness, gait disturbance, headache, hearing loss, loss of consciousness, numbness, seizure activity, speech changes, syncope, near syncope, tingling, tinnitus, tremor, visual changes. Exam: 04:10 Constitutional: This is a well developed, well nourished patient who is awake, alert, mh7 and in no acute distress. Head/Face: Normocephalic, atraumatic. 04:10 ENT: Nares patent. No nasal discharge, no septal abnormalities noted. Tympanic membranes are normal and external auditory canals are clear. Oropharynx with no redness, swelling, or masses, exudates, or evidence of obstruction, uvula midline. Mucous membranes moist. Neck: Trachea midline, no thyromegaly or masses palpated, and no cervical lymphadenopathy. Supple, full range of motion without nuchal rigidity, or vertebral point tenderness. No Meningismus. Chest/axilla: Normal chest wall appearance and motion. Nontender with no deformity. No lesions are appreciated. Cardiovascular: Regular rate and rhythm with a normal S1 and S2. No gallops, murmurs, or rubs. Normal PMI, no JVD. No pulse deficits. Respiratory: Lungs have equal breath sounds bilaterally, clear to auscultation and percussion. No rales, rhonchi or wheezes noted. No increased work of breathing, no retractions or nasal flaring. Abdomen/GI: Soft, non-tender, with normal bowel sounds. No distension or tympany. No guarding or rebound. No evidence of tenderness throughout. Back: No spinal tenderness. No costovertebral tenderness. Full range of motion. MS/ Extremity: Pulses equal, no cyanosis. Neurovascular intact. Full, normal range of motion. Neuro: Awake and alert, GCS 15, oriented to person, place, time, and situation. Cranial nerves II-XII grossly intact. Motor strength 5/5 in all extremities. Sensory grossly intact. Cerebellar exam normal. Normal gait. Psych: Awake, alert, with orientation to person, place and time. Behavior, mood, and affect are within normal limits. 04:10 Skin: Warm, dry with normal turgor. Normal color with no rashes, no lesions, and no evidence of cellulitis. 04:10 Eyes: Conjunctiva: pale, bilaterally. 04:10 Skin: Vital Signs: 02:29 BP 113 / 59; Pulse 88; Resp 16 S; Temp 98.6(O); Pulse Ox 99% on R/A; Weight 92.99 kg bb (R); Height 5 ft. 2 in. (157.48 cm) (R); Pain 0/10; 02:45 BP 114 / 55; Pulse 71; Resp 18; Temp 98.6; Pulse Ox 100% on R/A; Pain 0/10; you 04:15 BP 110 / 56; Pulse 83; Resp 18; Pulse Ox 100% on R/A; Pain 0/10; you 05:04 BP 122 / 63; Pulse 86; Resp 16; Temp 98.6; Pulse Ox 100% on R/A; Pain 0/10; you 06:19 BP 114 / 61; Pulse 82; Resp 18; Temp 98.4; Pulse Ox 100% on R/A; Pain 0/10; you 02:29 Body Mass Index 37.49 (92.99 kg, 157.48 cm) bb MDM: 07:00 Differential Diagnosis sepsis, dehydration, anemia, generalized weakness. Data [facility] reviewed: vital signs, nurses notes, old medical records, lab test result(s), cardiac enzymes, CBC, electrolytes, EKG, radiologic studies, plain films. Data interpreted: Pulse oximetry: on room air is 100 %. Interpretation: normal. Counseling: I had a detailed discussion with the patient and/or guardian regarding: the historical points, exam findings, and any diagnostic results supporting the discharge/admit diagnosis, lab results, radiology results, the need for further work-up and treatment in the hospital. Response to treatment: the patient's symptoms have mildly improved after treatment. Refusal of service: The patient/guardian displays adequate decision making capability and despite a detailed discussion of alternatives, benefits, risks, and consequences refuses: Admission to the hospital for further work-up and treatment, . ED course: NAD, VSS, no focal neurological deficits. Discussed test results and need for admission for further care and evaluation. He declined admission here and requested transfer to [facility] where his doctors are. [facility] was called and declined transfer due to being at capacity. Patient then decided to leave against medical advice. Explained the possibility of permanent disability and/or if his condition worsens. he verbalized that he understood this information as presented. He knows he can return here if he has any concerns or changes his mind.. 07:07 Patient medically screened. [facility] 03/24 04:08 Order name: Basic Metabolic Panel; Complete Time: 05:55 mh03/24 04:08 Order name: CBC with Diff [facility] 03/24 04:08 Order name: LFT's; Complete Time: 05:55 03/24 04:08 Order name: Magnesium; Complete Time: 05:55 03/24 04:08 Order name: NT PRO-BNP; Complete Time: 05:55 03/24 04:08 Order name: PT-INR; Complete Time: 05:03 [facility] 03/24 04:08 Order name: Troponin HS; Complete Time: 05:55 03/24 04:08 Order name: XRAY Chest (1 view) [facility] 03/24 04:08 Order name: EKG; Complete Time: 04:09 03/24 04:08 Order name: Cardiac monitoring; Complete Time: 04:55 03/24 04:08 Order name: Type And Screen; Complete Time: 05:55 03/24 05:03 Order name: Manual Differential [facility] 03/24 04:08 Order name: EKG - Nurse/Tech; Complete Time: 04:55 [facility] 03/24 04:08 Order name: IV Saline Lock; Complete Time: 04:55 03/24 04:08 Order name: Labs collected and sent; Complete Time: 04:55 03/24 04:08 Order name: O2 Per Protocol; Complete Time: 04:55 03/24 04:08 Order name: O2 Sat Monitoring; Complete Time: 04:55 03/24 04:08 Order name: Urine Dipstick-Ancillary (obtain specimen) [facility] 03/24 05:07 Order name: Transfuse [facility] Administered Medications: No medications were administered Disposition Summary: 03/24/22 06:47 Left Against Medical Advice Location: Home you Condition: Undetermined you Discharge Instructions: - Discharge Summary Sheet [facility] - Anemia [facility] - Hyponatremia, Vccs-[id number] [facility] - Pancytopenia [facility] Signatures: Dispatcher [employer] Leonor Ashraf RN RN bb Mike Shepherd MD MD [facility] Leoonr Vera RN RN you
--- NOTE | 2022-03-24 06:48 | ER ---
Nurse's Notes [facility] Name: Alejandro Elizabeth Age: 62 yrs Sex: Male : 1960 Arrival Date: 03/24/2022 Time: 02:14 Bed 17 Private MD: Diagnosis: Presentation: 03/24 02:29 Chief complaint: Patient states: pt has lymphoma and is on chemo tonight he is feeling bb very weak, bloated, he was here earlier this month for the same thing and received a blood transfusion at that time. Coronavirus screen: At this time, the client does not indicate any symptoms associated with coronavirus-19. Ebola Screen: No symptoms or risks identified at this time. Initial Sepsis Screen: Does the patient meet any 2 criteria? No. Patient's initial sepsis screen is negative. Does the patient have a suspected source of infection? No. Patient's initial sepsis screen is negative. Risk Assessment: Do you want to hurt yourself or someone else? Patient reports no desire to harm self or others. Onset of symptoms was March 24, 2022. 02:29 Method Of Arrival: Ambulatory bb 02:29 Acuity: JARED 3 bb Historical: - Allergies: 02:31 rotexaban; bb - PMHx: 02:31 lymphoma; bb - Immunization history:: Pfizer x 2. - Social history:: Smoking status: Patient denies any tobacco usage or history of. Screenin:05 Abuse screen: Denies threats or abuse. Denies injuries from another. Nutritional you screening: No deficits noted. Tuberculosis screening: No symptoms or risk factors identified. Fall Risk None identified. Assessment: 02:30 Reassessment: No changes from previously documented assessment. Pt placed in room #17 you and placed on the bs monitor. He appears in NAD, but reports weakness and a hx of lymphoma with previous blood transfusion, earlier this month. His is at bedside. 06:20 Reassessment: The pt was hoping to be transferred to [facility],"where his doctors are", you per his at bedside, but was told by the MD that they didn't have any beds. The pt and his are discussing what to do. The MD shared the lab values with the pt and his . 06:43 Reassessment: The pt and his decided to go to [facility], where his physicians are. you He signed the AMA form and I dc'd his SL. I gave him a copy of all his labs. Vital Signs: 02:29 BP 113 / 59; Pulse 88; Resp 16 S; Temp 98.6(O); Pulse Ox 99% on R/A; Weight 92.99 kg bb (R); Height 5 ft. 2 in. (157.48 cm) (R); Pain 0/10; 02:45 BP 114 / 55; Pulse 71; Resp 18; Temp 98.6; Pulse Ox 100% on R/A; Pain 0/10; you 04:15 BP 110 / 56; Pulse 83; Resp 18; Pulse Ox 100% on R/A; Pain 0/10; you 05:04 BP 122 / 63; Pulse 86; Resp 16; Temp 98.6; Pulse Ox 100% on R/A; Pain 0/10; you 06:19 BP 114 / 61; Pulse 82; Resp 18; Temp 98.4; Pulse Ox 100% on R/A; Pain 0/10; you 02:29 Body Mass Index 37.49 (92.99 kg, 157.48 cm) bb ED Course: 02:14 Patient arrived in ED. kz 02:31 Triage completed. bb 02:31 Arm band placed on Patient placed in an exam room, on a stretcher, on pulse oximetry. bb Family accompanied patient. 02:36 Leonor Vera, RN is Primary Nurse. you 02:45 engine monitor on. Pulse ox on. NIBP on. you 02:50 Mike Shepherd MD is Attending Physician. mh7 04:48 XRAY Chest (1 view) In Process Unspecified. EDMS 04:55 Type And Screen Sent. you 04:55 Basic Metabolic Panel Sent. you 04:55 Troponin HS Sent. you 04:55 PT-INR Sent. you 04:55 NT PRO-BNP Sent. you 04:56 Magnesium Sent. you 04:56 LFT's Sent. you 04:56 CBC with Diff Sent. you 05:01 Notified ED physician of a critical lab result(s). WBCs of 0.2, Hgb 6.7, Hct 18, Plt bb 83, [address] Shepherd notified. 05:17 Notified ED physician of a critical lab result(s). Na 114, Chloride 81, Dr Joao boothe notified. Administered Medications: No medications were administered Outcome: 06:47 Patient left the ED. you Signatures: Dispatcher [employer] EDLeonor Lee RN RN bb Holmes, Maurice, MD MD mh7 Leonor Vera RN RN bo Zapata, Kelly kz
[2022-03-24 06:53] VITALS: O2SAT 100
[2022-03-24 06:59] VITALS: BP 114/61; TEMP 98.4
--- NOTE | 2022-03-24 12:03 | RAD REPORT ---
EXAM DESCRIPTION: RAD - Chest Single View - 03/24/2022 4:47 am CLINICAL HISTORY: Generalized weakness COMPARISON: None. TECHNIQUE: XR CHEST 1 VIEW 03/24/2022 4:08 AM CDT FINDINGS: Cardiac silhouette is normal in size. Lungs are clear without consolidation, atelectasis, mass or edema. There is no pleural effusion. There is no pneumothorax. There are no acute osseous fin dings. Right chest port catheter tip is in the mid SVC. IMPRESSION: Clear lungs. Electronically signed by: Camden Wang MD 03/24/2022 6:02 AM CDT Due to temporary technical issues with the PACS/Fluency reporting system, reports are being signed by the in house radiologist without review as a courtesy to ensure prompt reporting. The interpreting r adiologist is fully responsible for the content of the report.
--- NOTE | 2022-03-24 17:57 | EKG ---
Test Date: 2022-03-24 Test Time: 04:49:09 Director Of Religious Life: MEASUREMENT RESULTS: Intervals: Rate: 82 VT: 186 QRSD: 88 QT: 354 QTc: 413 [place]: P: 57 VT: 186 QRS: 33 T: 85 INTERPRETIVE STATEMENTS: Normal sinus rhythm Normal ECG Compared to ECG 03/03/2022 11:29:51 ST (T wave) deviation no longer present Electronically Signed On 03-24-22 17:56:43 CDT by Moreno Gerardo
== END 2022-03-24 06:47 | disposition left against medical advice (07) ==
LOC: ER 02:11
DX: D64.9 Anemia, unspecified (principal); E87.1 Hypo-osmolality and hyponatremia; D61.818 Other pancytopenia; Z88.8 Allergy status to other drugs, medicaments and biological substances; Z85.72 Personal history of non-Hodgkin lymphomas
CPT/HCPCS: 36415; 71045; 80048; 80076; 83735; 83880; 84484; 85025; 85610; 86850; 86900; 86901; 93005; 99284